=== PATIENT | female | born 1930 | race Caucasian/White ===

== ENCOUNTER 2016-09-10 12:09 | Day surgery (SDC) | payer MEDICARE, BC ==
[2016-09-10 13:16] VITALS: BP 164/83
[2016-09-10] MEDS ORDERED: TETRACAINE HCL 150 DROP BTL LEFTEYE ONE (13:29)
== END 2016-09-10 12:10 | disposition home or self-care (01) ==
LOC: AMB 12:09
PROVIDERS: ATTEND Ophthalmology
PROC: 08933ZZ Drainage of Left Anterior Chamber, Percutaneous Approach (ICD-10-PCS; principal; 2016-09-10 12:30)
DX: H40.1123 Primary open-angle glaucoma, left eye, severe stage (principal); I10 Essential (primary) hypertension; E78.00 Pure hypercholesterolemia, unspecified; E03.9 Hypothyroidism, unspecified; Z68.29 Body mass index [BMI] 29.0-29.9, adult

== ENCOUNTER 2020-07-05 23:29 | Inpatient (IN) ==
[2020-07-05] MEDS ORDERED: NORMAL SALINE 1,000 ML IV ONE (23:39)
[2020-07-05 23:48] LABS: Mean Corpuscular Hemoglobin 31.3 pg (27-31); Mean Corpuscular Hgb Conc 32.6 g/dl (32-36); Mean Platelet Volume 10.6 fl (8-12.5); Neutrophil # 7.1 K/mm3 (1.3-6.0); Neutrophil % 74.4 % (42-75.0); Platelet Count 209 K/mm3 (150-450); Red Blood Count 4.48 M/mm3 (4.2-5.4); Red Cell Distribution Width 12.2 % (11.5-14.0); White Blood Count 9.6 K/mm3 (4.0-10.5)
[2020-07-05] MEDS ORDERED: ONDANSETRON HCL/PF 2 MG/ML VIAL IV ONE (23:55)
[2020-07-05] MEDS ORDERED: ONDANSETRON HCL/PF 2 MG/ML VIAL ONE (23:56)
[2020-07-05] MEDS ORDERED: FAMOTIDINE 10 MG/ML VIAL IV ONE (23:56)
--- NOTE | 2020-07-05 23:59 | ERNOTE ---
Medical Problem HPI - Narrative Date of Service: 07/05/20 - General Time Seen by Provider: 07/05/20 23:31 Source: patient, family, EMS Exam Limitations: clinical condition - Immun/Allergies/Home Medications Allergies/Adverse Reactions: Allergies Penicillins Allergy (Unknown, Verified 09/04/16 09:10) Home Medications: HOME MEDICATIONS Aspirin [Aspirin EC] 81 mg PO DAILY 07/06/20 [Last Taken Unknown] Bimatoprost [Lumigan 0.01% Opth Solution] 2.5 ml OP DAILY 07/06/20 [Last Taken Unknown] Brimonidine Tartrate [Alphagan P 0.1% Ophthalmic Solution] 5 ml OP TID 07/06/20 [Last Taken Unknown] Brinzolamide [Azopt 1% Ophthalmic Suspension] 10 ml OP BID 07/06/20 [Last Taken Unknown] Cranberry 4,200 mg PO BID 07/06/20 [Last Taken Unknown] Garlic 1,000 mg PO DAILY 07/06/20 [Last Taken Unknown] Glucosamine HCl/MSM [Sm Glucosamine & MSM Tablet] 2 ea PO DAILY 07/06/20 [Last Taken Unknown] Hydrochlorothiazide [Hydrodiuril] 25 mg PO DAILY 07/06/20 [Last Taken Unknown] Levothyroxine Sodium [Synthroid] 50 mcg PO DAILY 07/06/20 [Last Taken Unknown] Lisinopril [Zestril] 10 mg PO DAILY 07/06/20 [Last Taken Unknown] [place]-3 Fatty Acids/Fish Oil [Fish Oil 1,000 mg Capsule] 1 ea PO DAILY 07/06/20 [Last Taken Unknown] Vitamin B12 1,000 mg PO DAILY 07/06/20 [Last Taken Unknown] Vitamin D3 2,000 units PO DAILY 07/06/20 [Last Taken Unknown] - History of Present History Narrative: Patient is an 89 yr old female being treated for back pain pending MRI presenting with N/V after Tramadol times one. Patientpresents per EMS from home. Family described patient as nauseated and lethargic lying on the floor at home. Timing: getting worse Severity: moderate Modifying Factors - (Improves): Present: rest Modifying Factors - (Worsens): Present: movement Review of Systems - Review of Systems Constitutional: Present: weakness EYE: Present: no symptoms reported ENT: Present: no symptoms reported Respiratory: Present: no symptoms reported Cardiology: Present: no symptoms reported Gastrointestinal/Abdominal: Present: nausea, vomiting Genitourinary: Present: no symptoms reported Musculoskeletal: Present: no symptoms reported Skin: Present: no symptoms reported Neurological: Present: no symptoms reported Hematologic/Lymphatic: Present: no symptoms reported Psych: Present: no symptoms reported Medical History (Last Reviewed 07/06/20 @ 01:34 by Marie Shaikh MD) Hx of cataract Hx of chronic arthritis Hypertension Hypothyroid Surgical History: Surgical History (Last Reviewed 07/06/20 @ 01:34 by Marie Shaikh MD) History of hip surgery Hx of cataract surgery Family History: Family History (Last Reviewed 07/06/20 @ 01:34 by Marie Shaikh MD) Other Family history non-contributory Physical Exam - Physical Exam General Appearance: Present: wd/wn, moderate distress, lethargic Head Exam: Present: normal inspection, no evidence of injury Eye Exam: Normal inspection: bilateral Ears, Nose, Throat: Present: normal ENT inspection Neck: Present: normal inspection, nontender Respiratory: Present: no respiratory distress, normal breath sounds, no accessory muscle use, chest nontender, lungs clear Cardiovascular/Chest: Present: normal peripheral pulses, bradycardia, systolic murmur Peripheral Pulses: N=norm/S=strong/W=weak/B=bound/A=absent: Radial (R): Normal, Radial (L): Normal, Dorsalis-pedis (R): Normal, Dorsalis-pedis (L): Normal Gastrointestinal/Abdominal: Present: normal bowel sounds, tenderness - midepigastric Extremity Exam: Present: normal inspection, non-tender, normal range of motion, no edema Progress - Results and Orders Patient's Lab Results:: I have reviewed the patient's lab results. - Vital Signs Patient's Vital Signs:: I have reviewed the patient's vital signs. - EKG EKG #1 EKG read: Interp. by me - EKG demonstrates sinus bradycardia with occasional PVCs and a rate of 58. No acute changes are noted. - Progress/Reassessment Progress:: Improved Plan - Plan Plan: Patient has history of scoliosis of the lower back. Patient was evaluated at [facility] and pending MRI in a.m. Patient was treated with tramadol for discomfort. Patient took 1 dose of tramadol and developed nausea vomiting. Patient's family described her as very lethargic. Patient presented to the emergency department bradycardic with near syncopal episode with drop in pulse ox requiring 1 to 2 L/min of nasal cannula. Patient gradually improved but with persistent nausea. Repeat blood pressure after 1 L of fluid noting BNP of 800 the blood pressure is 131/62 with heart rate of 62. Patient will be admitted and gradually hydrated and observed with symptomatic treatment for medication reaction. Case is discussed with and will admit for observation. Departure Clinical Impression: Medication reaction - Departure Disposition: Short Term Hospital Inpatient Condition: Stable Referrals: Dioni Smith MD [Primary Care Provider] -
[2020-07-06 00:02] LABS: Albumin * 3.7 gm/dl (3.4-5.0); Bilirubin, Total 0.7 mg/dL (0.0-1.1); Total Protein 7.3 gm/dL (6.2-8.2)
[2020-07-06 00:04] LABS: Anion Gap 15.7 mmol/L (6.8-13.8); BUN/Creatinine Ratio 19.6 (9.0-21.6); Ca. Corrected For Albumin 9.8 mg/dL (8.4-10.2); Calcium * 9.9 mg/dL (7.9-10.9); Carbon Dioxide 27.2 mmol/L (24-32.6); Potassium 3.9 mmol/L (3.4-4.6)
[2020-07-06] MEDS: NORMAL SALINE 1,000 ML IV ONE ×2 (00:37→01:12)
[2020-07-06] MEDS ORDERED: SUCRALFATE 1 G/10 ML UDC PO ONE (00:47)
[2020-07-06] MEDS ORDERED: ONDANSETRON HCL/PF 2 MG/ML VIAL IV ONE (01:04)
[2020-07-06] MEDS ORDERED: KETOROLAC TROMETHAMINE 30 MG/ML VIAL IV ONE (02:15)
[2020-07-06] MEDS ORDERED: cefTRIAXone SODIUM 1,000 MG/100 ML BAG IV ONE (03:00)
--- NOTE | 2020-07-06 08:25 | HP ---
Chief Complaint - Chief Complaint Date of Service: 07/06/20 Time of Service: 08:25 Chief Complaint: nausea/ vomiting/abdominal pain History of Present Illness: Marylu Murry is an 89 yr old white female with past medical history significant for hypertension, hypothyroidism, hyperlipidemia and low back pain who was admitted on 07/06/2020 for nausea and vomiting after taking tramadol. Marylu has been having constipation for the past several days. On Saturday she had back pain that also involve her right abdominal area. She was given oxycodone by her daughter on Saturday. She had another dose on Saturday. She saw orthopedics at [facility] who ordered for an MRI for her back and she was sent home with tramadol. She took one of them and she had abdominal pain severe and she went to be bathroom but could not have any bowel movement. She took stool laxatives and went back to her bed but the pain was worse associated with nausea and vomiting x3. She laid down on the floor with her pillow and called her daughter. She was then brought to our emergency room . She said she did not pass out at all. She denied fever or chills, dark or bright red blood stools. Her CBC and CMP were essentially within normal limits except for Cr/GFR.. Her CT scan of the abdomen though showed- IMPRESSION: TECHNICALLY LIMITED STUDY ON ACCOUNT OF NONCONTRAST TECHNIQUE AND CONSIDERABLE STREAK ARTIFACT FROM BILATERAL HIP PROSTHETIC HARDWARE. SUSPECTED INFECTIOUS OR INFLAMMATORY ENTEROCOLITIS, MOST PRONOUNCED IN THE TRANSVERSE COLON. MODERATE RETENTION OF FLUID AND STOOL IN THE SMALL AND LARGE BOWEL, POSSIBLY REFLECTING MILD ASSOCIATED ADYNAMIC ILEUS. NO APPRECIABLE EVIDENCE OF MECHANICAL OBSTRUCTION, PNEUMATOSIS OR FREE AIR. QUESTIONABLE STOOL BURDEN IN THE RECTAL VAULT RAISING QUESTION OF FECAL IMPACTION ALTHOUGH THIS IS LIKELY. MODERATELY DISTENDED GALLBLADDER WITH NO GALLSTONES. THE STUDY CONCURS WITH THE PRELIMINARY REPORT FROM [facility] AT 0253 HOURS ON JUNE 26, 2020. She started passing liquid stools in the emergency room. Her ultrasound of her gallbladder done while she was on the floor showed- IMPRESSION: 1. Distended gallbladder without cholelithiasis. No evidence of acute cholecystitis on this exam. Normal caliber bile ducts given patient's age. 2. Trace fluid adjacent to the liver. If there is persistent concern for acute cholecystitis or gallbladder dysfunction, a nuclear medicine hepatobiliary scan could be performed to further evaluate. Patient is currently awake alert oriented x3, feeling better but lubricating machine tender diffusely on palpation of her abdomen. ADDENDUM: 9:49 am - Nurse says she passed put large liquid stool, maroonish in color- positive for occult blood. Medical History (Last Reviewed 07/06/20 @ 05:12 by Brigette Kurtz RN) Hx of cataract Hx of chronic arthritis Hypertension Hypothyroid Prolapsed bladder Rectocele Surgical History: Surgical History (Last Reviewed 07/06/20 @ 05:12 by Brigette Kurtz RN) History of hip surgery daughter reports pt has had bilateral hip replacements Hx of cataract surgery Family History: Family History (Last Updated 07/06/20 @ 05:13 by Brigette Kurtz RN) Mother Family history non-contributory Other Heart disease Social History: (Last Updated 07/06/20 @ 02:25 by Emelia Arevalo RN) Tobacco: Smoking Status: Never smoker Alcohol: alcohol intake: never Substance Use: substance use type: does not use Review Of Systems (GEN) - Review of Systems Generalized/Overall Review: Present: Weakness. Absent: Chills, Fever EENTM: Absent: Blurred Vision Respiratory: Absent: Cough, Shortness of Breath, Orthopnea Cardiac: Absent: Chest Pain, Edema, Palpitations Abdominal: Present: Nausea, Vomiting, Abdominal Pain, Constipation, Diarrhea. Absent: Hematemesis, Bright blood from rectum Genitourinary: Absent: Urgency, Frequency Musculoskeletal: Present: Back Pain. Absent: Joint Pain Neurological: Absent: Headache Skin: Absent: Lesions, Rash Endocrine: Absent: Intolerance to Cold, Intolerance to Heat Misc: All systems neg except as marked Immunizations: IMMUNIZATION HX History of Influenza Vaccine More Information Required Hx Pneumococcal Vaccination More Information Required Allergies/Adverse Reactions: Allergies Allergy/AdvReac Type Severity Reaction Status Date / Time Penicillins Allergy Unknown Verified 09/04/16 09:10 tramadol AdvReac Severe Other Verified 07/06/20 03:29 Home Medications: HOME MEDICATIONS Aspirin [Aspirin EC] 81 mg PO DAILY 07/06/20 [Last Taken 07/05/20] B Complx/C/Folic/Zinc/Cup Bartholomew/E [Lrjpxbxbachq-Tdre-Kglgrq Tab] 1 ea PO DAILY 07/06/20 [Last Taken Unknown] Brimonidine Tartrate [Alphagan P 0.1% Ophthalmic Solution] 1 drop EACHEYE TID 07/06/20 [Last Taken Unknown] Cranberry 500 mg PO TID 07/06/20 [Last Taken Unknown] Dorzolamide HCl/Timolol Maleat [Dorzolamide-Timolol Eye Drops] 1 drp EACHEYE BID 07/06/20 [Last Taken Unknown] Garlic 500 mg PO DAILY 07/06/20 [Last Taken 07/05/20] Hydrochlorothiazide [Hydrodiuril] 25 mg PO DAILY 07/06/20 [Last Taken Unknown] Levothyroxine Sodium [Synthroid] 50 mcg PO DAILY 07/06/20 [Last Taken Unknown] Lisinopril [Zestril] 10 mg PO HS 07/06/20 [Last Taken Unknown] [place]-3 Fatty Acids/Fish Oil [Fish Oil 1,000 mg Capsule] 1 ea PO DAILY 07/06/20 [Last Taken 07/05/20] Vitamin D3 2,000 units PO DAILY 07/06/20 [Last Taken 07/05/20] Exam - Exam Vital Signs: Vital Signs - Last Taken Temp 36.3 C 07/06/20 06:00 Pulse 65 07/06/20 06:00 Resp 16 07/06/20 06:00 BP 119/55 07/06/20 06:00 Pulse Ox 96 07/06/20 06:00 Constitutional: Present: Alert, Oriented x3, Cooperative, Elderly ENT Exam: Present: hearing grossly normal Eye Exam: bilateral eye: normal inspection, PERRL, EOMI Neck: Present: supple. Absent: lymphadenopathy (R), lymphadenopathy (L) Respiratory: Present: decreased breath sounds, No rales, No wheezing Cardiovascular/Chest: Present: regular rate, rhythm, no JVD, no murmur Abdomen: Present: soft, no rebound tenderness, tender, hypoactive Extremity: Present: no calf tenderness. Absent: lower extremity edema Diagnostic Studies: Abnormal Lab Results 07/05/20 07/05/20 07/05/20 Range/Units 23:43 23:43 23:46 MCH 31.3 H (27-31) pg Immature Gran % (Auto) 0.60 H (0.001-0.429) % Immature Gran # (Auto) 0.06 H (0.000-0.0310) K/mm3 Lymphocytes % 19.4 L (20-51) % Neutrophils # 7.1 H (1.3-6.0) K/mm3 Chloride 94 L (97-106) mmol/L Anion Gap 15.7 H (6.8-13.8) mmol/L BUN 29 H (3-23) mg/dL Creatinine 1.48 H (0.4-1.4) mg/dL Est GFR (Non-Af Amer) 35 L (60-130) mL/min Random Glucose 172 H (70-110) mg/dL B-Natriuretic Peptide 816 H (5-550) pg/mL Laboratory Results WBC 9.6 K/mm3 (4.0-10.5) 07/05/20 23:43 RBC 4.48 M/mm3 (4.2-5.4) 07/05/20 23:43 Hgb 14.0 gm/dL (12.5-16.0) 07/05/20 23:43 Hct 43.0 % (37.0-47.0) 07/05/20 23:43 MCV 96.0 fl (78-100) 07/05/20 23:43 MCH 31.3 pg (27-31) H 07/05/20 23:43 MCHC 32.6 g/dl (32-36) 07/05/20 23:43 RDW 12.2 % (11.5-14.0) 07/05/20 23:43 Plt Count 209 K/mm3 (150-450) 07/05/20 23:43 MPV 10.6 fl (8-12.5) 07/05/20 23:43 Immature Gran % (Auto) 0.60 % (0.001-0.429) H 07/05/20 23:43 Immature Gran # (Auto) 0.06 K/mm3 (0.000-0.0310) H 07/05/20 23:43 Neutrophils % 74.4 % (42-75.0) 07/05/20 23:43 Lymphocytes % 19.4 % (20-51) L 07/05/20 23:43 Monocytes % 4.1 % (0.0-9) 07/05/20 23:43 Eosinophils % 1.2 % (0.0-3.0) 07/05/20 23:43 Basophils % 0.3 % (0.0-1.0) 07/05/20 23:43 Nucleated RBC % 0.0 k/mm3 (0-1) 07/05/20 23:43 Neutrophils # 7.1 K/mm3 (1.3-6.0) H 07/05/20 23:43 Lymphocytes # 1.85 k/mm3 (1.5-3.5) 07/05/20 23:43 Monocytes # 0.4 k/mm3 (0.0-1.0) 07/05/20 23:43 Eosinophils # 0.1 k/mm3 (0.0-0.7) 07/05/20 23:43 Absolute Basophils 0.0 k/mm3 (0.0-0.1) 07/05/20 23:43 Sodium 133 mmol/L (132-142) 07/05/20 23:43 Plasma Sodium 134 mmol/L (130-142) 07/05/20 23:43 Potassium 3.9 mmol/L (3.4-4.6) 07/05/20 23:43 Chloride 94 mmol/L (97-106) L 07/05/20 23:43 Carbon Dioxide 27.2 mmol/L (24-32.6) 07/05/20 23:43 Anion Gap 15.7 mmol/L (6.8-13.8) H 07/05/20 23:43 BUN 29 mg/dL (3-23) H 07/05/20 23:43 Creatinine 1.48 mg/dL (0.4-1.4) H 07/05/20 23:43 Est GFR (Non-Af Amer) 35 mL/min (60-130) L 07/05/20 23:43 BUN/Creatinine Ratio 19.6 (9.0-21.6) 07/05/20 23:43 Random Glucose 172 mg/dL (70-110) H 07/05/20 23:43 Calcium 9.9 mg/dL (7.9-10.9) 07/05/20 23:43 Calcium Adj for Albumin 9.8 mg/dL (8.4-10.2) 07/05/20 23:43 Total Bilirubin 0.7 mg/dL (0.0-1.1) 07/05/20 23:43 AST 42 U/L (0-48) 07/05/20 23:43 ALT 33 U/L (19-67) 05/18/21 23:43 Alkaline Phosphatase 60 U/L (50-170) 07/05/20 23:43 B-Natriuretic Peptide 816 pg/mL (5-550) H 07/05/20 23:46 Total Protein 7.3 gm/dL (6.2-8.2) 07/05/20 23:43 Albumin 3.7 gm/dl (3.4-5.0) 07/05/20 23:43 SARS-CoV-2 (PCR) Not detected (NotDetected) 07/06/20 01:37 Assessment/Plan - Narrative Narrative: Marylu Murry is an 89-year-old white female who was admitted for nausea, vomiting and abdominal pain. While this could be due to tramadol medication causing biliary spasm, her CT scan of her abdomen does show enterocolitis which could be infectious or inflammatory. Will send stool for culture, occult blood. Will also check IBD panel. Unlikely ischemic or malignancy. It was done though without contrast. Her white blood cell count and liver function tests were all within normal limits except for her Cr/GFR. Physically patient is lubricating machine tender all over with equivocal rebound (?). We will keep patient on clear liquids for bowel rest and start on IV antibiotics, IV protonix. We will get a surgical consult. Her ultrasound showed cholelithiasis with no evidence of acute cholecystitis. Her LFT are all WNL. ADDENDUM: 9:49-The nurse says she just passed a large bowel movement, maroonish, liquid. positive stool for occult blood. - Assessment/Plan (1) Enterocolitis Assessment: with ileus and GIB Problem: Acute (2) Medication reaction Problem: Suspected Qualifiers: Encounter type: initial encounter Qualified Code(s): T50.905A - Adverse effect of unspecified drugs, medicaments and biological substances, initial encounter (3) Cholelithiasis Problem: Acute Qualifiers: Cholecystitis presence: without cholecystitis (4) Hypertension Problem: Chronic Qualifiers: Hypertension type: essential hypertension Qualified Code(s): I10 - Essential (primary) hypertension (5) Hypothyroidism Problem: Chronic Qualifiers: Hypothyroidism type: acquired Qualified Code(s): E03.9 - Hypothyroidism, unspecified (6) CRF (chronic renal failure) Problem: Acute Qualifiers: Chronic kidney disease stage: stage 3 (moderate) Chronic kidney disease stage 3 subtype: stage 3b (GFR 30-44) Qualified Code(s): N18.32 - Chronic kidney disease, stage 3b
[2020-07-06] MEDS: metroNIDAZOLE/SODIUM CHLORIDE 500 MG/100 ML BAG IV SCH ×2 (09:33→16:08)
[2020-07-06] MEDS: NORMAL SALINE 1,000 ML IV PRN ×2 (09:35→20:08)
[2020-07-06] MEDS: CIPROFLOXACIN IN 5 % DEXTROSE 400 MG/200 ML BAG IV SCH ×2 (10:32→20:06)
[2020-07-06] MEDS: LEVOTHYROXINE SODIUM 50 MCG TABLET PO SCH (10:33)
[2020-07-06] MEDS: PANTOPRAZOLE SODIUM 40 MG in NORMAL SALINE 100 ML IV SCH (10:44)
[2020-07-06] MEDS: BRIMONIDINE TARTRATE 50 DROP BTL EACHEYE SCH ×2 (12:18→16:08)
[2020-07-06] MEDS: ACETAMINOPHEN 325 MG TABLET PO PRN ×2 (14:31→23:56)
[2020-07-06] MEDS: TIMOLOL MALEATE/DORZOLAM HCL 100 DROP BTL EACHEYE SCH (20:11)
[2020-07-06] MEDS: LISINOPRIL 10 MG TABLET PO SCH (21:52)
--- NOTE | 2020-07-06 23:11 | CONS ---
[facility] - General Date of Service: 07/06/20 Source: patient, family, RN/MD, RN notes reviewed Exam Limitations: other - Patient is not a precise historian - History of Present Illness Initial Comments: The patient has been having pain in her right side and back. She has apparently had back pain for a long time. She saw the spine surgeon in [place] who ordered an MRI for today. Apparently last night she took a tramadol and when she went into the bathroom collapsed on the floor. She was limp and then needed to call an ambulance to bring her to the hospital. She did not lose consciousness. Evaluation in the emergency room last night included a CAT scan of the abdomen and pelvis (no p.o. contrast). There were findings of a distended gallbladder and ultrasound was recommended. There was also soft tissue reaction around the left colon and inflammatory or enterocolitis was suggested. Today apparently she passed some maroon blood after a bowel movement. She has apparently had another bowel movement that had less blood in it. Her vital signs have remained stable. She has not been febrile. Her gallbladder ultrasound this morning showed no gallstones or evidence of acute inflammation. The patient has complained of some lower abdominal discomfort. I was able to interview the patient's daughter at length. She was brought to the hospital after becoming weak in the bathroom. She was supposed to have an MRI today but that has been rescheduled. The history of belly pain and her bowel movement history is somewhat uncertain. Apparently she had not had a bowel movement for several days prior to coming to the hospital (possibly not since before the weekend). She may have some problems with constipation. They are not sure if she takes medication for her bowels, her uses prune juice, there is some Citrucel in the house. They are not sure what pain medication she is taking--- she has some oxycodone from her hip surgery, and apparently also some tramadol. Dr. Farias is her primary care provider. Most of her previous studies have been done in [place]. She has had some abdominal surgery--at least a hysterectomy. The daughter is unsure when she had a colonoscopy but she probably had one in [place] a while ago. Severity: moderate Modifying Factors - (Worsens): Reports: movement Modifying Factors - (Improves): Reports: rest Associated Symptoms: other - No fever or chills. She is burping. She feels like she might have to have a bowel movement Allergies/Adverse Reactions: Allergies Penicillins Allergy (Unknown, Verified 09/04/16 09:10) tramadol Adverse Reaction (Severe, Verified 07/06/20 03:29) Other causes lethargy and vomiting Home Medications: Home Medications Medication Instructions Recorded Last Taken Aspirin [Aspirin EC] 81 mg PO DAILY 07/06/20 07/05/20 B Complx/C/Folic/Zinc/Cup Bartholomew/E 1 ea PO DAILY 07/06/20 Unknown [Yycfuwkzlzkk-Atjf-Ikuvyk Tab] Brimonidine Tartrate [Alphagan P 1 drop EACHEYE TID 07/06/20 Unknown 0.1% Ophthalmic Solution] Cranberry 500 mg PO TID 07/06/20 Unknown Dorzolamide HCl/Timolol Maleat 1 drp EACHEYE BID 07/06/20 Unknown [Dorzolamide-Timolol Eye Drops] Garlic 500 mg PO DAILY 07/06/20 07/05/20 Hydrochlorothiazide [Hydrodiuril] 25 mg PO DAILY 07/06/20 Unknown Latanoprostene Bunod [Vyzulta] 1 drp EACHEYE HS 07/06/20 Unknown Levothyroxine Sodium [Synthroid] 50 mcg PO DAILY 07/06/20 Unknown Lisinopril [Zestril] 10 mg PO HS 07/06/20 Unknown [place]-3 Fatty Acids/Fish Oil [Fish 1 ea PO DAILY 07/06/20 07/05/20 Oil 1,000 mg Capsule] Vitamin D3 2,000 units PO DAILY 07/06/20 07/05/20 Procedures Application of splint (09/14/03) Drainage of Left Anterior Chamber, Percutaneous Approach (09/10/16) Insertion of intraocular lens prosthesis at time of cataract extraction, one- stage (05/06/07) Other facilitation of intraocular circulation (09/13/14) Phacoemulsification and aspiration of cataract (05/06/07) Medications - Medications Current Medications: Current Medications Acetaminophen (Acetaminophen 325 Mg Tablet) 650 mg PO Q6H PRN PRN Reason: Pain/Fever Stop: 08/05/20 13:40 Last Admin: 07/06/20 14:31 Dose: 650 mg Documented by: Brimonidine Tartrate (Brimonidine Tartrate 50 Drop Btl) 1 drop EACHEYE TID NATALYA Stop: 08/05/20 13:01 Last Admin: 07/06/20 16:08 Dose: 1 drop Documented by: Dorzolamide/Timolol (Timolol Maleate/Dorzolam Hcl 100 Drop Btl) 1 drop EACHEYE BID [facility] Stop: 08/05/20 21:01 Last Admin: 07/06/20 20:11 Dose: 1 drop Documented by: Sodium Chloride (Sodium Chloride 0.9%) 1,000 mls @ 125 mls/hr IV .Q8H PRN PRN Reason: HYDRATION Stop: 08/05/20 01:44 Last Admin: 07/06/20 20:08 Dose: 125 mls/hr Documented by: Ciprofloxacin/Dextrose (Cipro) 400 mg in 200 mls @ 200 mls/hr IV Q12H [facility]; Protocol Stop: 08/05/20 09:01 Last Infusion: 07/06/20 21:44 Dose: Infused Documented by: Metronidazole (Flagyl) 500 mg in 100 mls @ 100 mls/hr IV Q8H [facility]; Protocol Stop: 08/05/20 09:01 Last Infusion: 07/06/20 17:08 Dose: Infused Documented by: Pantoprazole Sodium 40 mg/ (Sodium Chloride) 100 mls @ 400 mls/hr IV Q24H [facility] Stop: 08/05/20 10:01 Last Infusion: 07/06/20 10:59 Dose: Infused Documented by: Levothyroxine Sodium (Levothyroxine Sodium 50 Mcg Tablet) 50 mcg PO DAILY@0700 [facility] Stop: 08/05/20 09:46 Last Admin: 07/06/20 10:33 Dose: 50 mcg Documented by: Lisinopril (Lisinopril 10 Mg Tablet) 10 mg PO [facility] Stop: 08/05/20 21:01 Last Admin: 07/06/20 21:52 Dose: 10 mg Documented by: Latanoprostene Bunod ([Vyzulta]) 1 drp EACHEYE [facility] Stop: 08/05/20 21:01 Last Admin: 07/06/20 20:00 Dose: Not Given Documented by: Review of Systems - Review of Systems Narrative: She is sleeping when I entered the room but awakens easily. She moves easily in bed. She does state that her lower abdomen is uncomfortable. Generalized/Overall Review: Absent: Chills, Fever EENTM: Present: No Symptoms Reported Respiratory: Absent: Cough, Shortness of Breath Cardiac: Absent: Chest Pain Abdominal: Present: Other - She states she feels a little distended. She is tender in the lower abdomen. It hurts more when she moves or coughs Genitourinary: Present: No Symptoms Reported Musculoskeletal: Present: Back Pain Neurological: Present: No Symptoms Reported Skin: Present: No Symptoms Reported Endocrine: Present: No Symptoms Reported Physical Examination - Exam Vital Signs: Vital Signs - Last Taken Temp 37.1 C 07/06/20 18:20 Pulse 74 07/06/20 21:52 Resp 18 07/06/20 18:20 BP 141/65 07/06/20 21:52 Pulse Ox 95 07/06/20 14:21 O2 Oxygen Delivery Method Room Air Constitutional: Present: Alert, Oriented x3, Cooperative, Well nourished, No distress ENT Exam: Present: normal ENT inspection Neck: Present: normal inspection Respiratory: Present: no respiratory distress Cardiovascular/Chest: Present: regular rate, rhythm Abdomen: Present: other - Her abdomen is distended and tympanic but soft. She complains of discomfort diffusely on palpation throughout the lower abdomen but does not guard. 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 nml as tested, no motor/sensory deficits, oriented x 3 Appearance: Present: appropriate appearance, other - She is not a precise historian but answers questions appropriately Eye contact: Present: cooperative, good eye contact, normal speech Thoughts: Present: normal thought pattern - Results and Findings: Lab/Microbiology results last 24 hrs: Abnormal/Pending Laboratory Last 24 HRS 07/06/20 07/06/20 07/05/20 09:39 08:55 23:46 MCH Immature Gran % (Auto) Immature Gran # (Auto) Lymphocytes % Neutrophils # Chloride Anion Gap BUN Creatinine Est GFR (Non-Af Amer) Random Glucose C-Reactive Prot, Quant 2.8 H B-Natriuretic Peptide 816 H Stool Occult Blood Positive H 07/05/20 07/05/20 23:43 23:43 MCH 31.3 H Immature Gran % (Auto) 0.60 H Immature Gran # (Auto) 0.06 H Lymphocytes % 19.4 L Neutrophils # 7.1 H Chloride 94 L Anion Gap 15.7 H BUN 29 H Creatinine 1.48 H Est GFR (Non-Af Amer) 35 L Random Glucose 172 H C-Reactive Prot, Quant B-Natriuretic Peptide Stool Occult Blood - Assessments/Findings (1) Abnormal computed tomography of abdomen and pelvis Diagnosis(s): The etiology of the CT scan findings referable to the colon is unclear. Her white blood cell count is normal, she is not febrile, her ESR is only 5 CRP is 2.8. Stool for C. difficile is negative. Stool culture is pending. Inflammatory bowel disease at her age would be unusual. Ischemic disease of the colon would usually produce a higher white blood cell count. She may have chronic constipation and a chronically dilated colon. She has been started on antibiotics empirically. Would recommend that she be kept on clear liquids tonight. Repeat CBC is ordered. An inflammatory disease panel has been ordered and a stool culture has been submitted. I had an extensive conversation with the patient's daughter and explained that currently the findings cannot be explained, however she is stable and supportive care with repeated exams would be appropriate. I will continue to follow the patient Problem: Acute (2) GI bleeding Diagnosis(s): The etiology of the bleeding is unclear. Whether it is due to having passed a hard bowel movement or somehow related to the CT scan findings is unclear at this time. She is hemodynamically stable. Meaningful examination of the colon would require a prep. Problem: Acute
[2020-07-07] MEDS: NORMAL SALINE 1,000 ML IV PRN ×3 (05:25→22:43)
[2020-07-07 07:15] LABS: Hematocrit 39.9 % (37.0-47.0); Hemoglobin 12.8 gm/dL (12.5-16.0); Mean Cell Volume 97.8 fl (78-100); Mean Corpuscular Hemoglobin 31.4 pg (27-31); Mean Corpuscular Hgb Conc 32.1 g/dl (32-36); Mean Platelet Volume 10.7 fl (8-12.5); Neutrophil # 7.7 K/mm3 (1.3-6.0); Platelet Count 168 K/mm3 (150-450); Red Blood Count 4.08 M/mm3 (4.2-5.4); Red Cell Distribution Width 12.9 % (11.5-14.0); White Blood Count 9.1 K/mm3 (4.0-10.5)
[2020-07-07 07:27] LABS: Albumin * 2.7 gm/dl (3.4-5.0); Anion Gap 11.4 mmol/L (6.8-13.8); BUN/Creatinine Ratio 25.7 (9.0-21.6); Bilirubin, Total 0.4 mg/dL (0.0-1.1); Ca. Corrected For Albumin 8.5 mg/dL (8.4-10.2); Calcium * 7.8 mg/dL (7.9-10.9); Carbon Dioxide 25.6 mmol/L (24-32.6); Total Protein 5.7 gm/dL (6.2-8.2)
[2020-07-07] MEDS: LEVOTHYROXINE SODIUM 50 MCG TABLET PO SCH (07:41)
[2020-07-07] MEDS: ONDANSETRON HCL/PF 2 MG/ML VIAL IV PRN ×2 (07:41→15:13)
[2020-07-07] MEDS: ACETAMINOPHEN 325 MG TABLET PO PRN (08:19)
[2020-07-07] MEDS: metroNIDAZOLE/SODIUM CHLORIDE 500 MG/100 ML BAG IV SCH ×3 (08:20→17:36)
[2020-07-07] MEDS: CIPROFLOXACIN IN 5 % DEXTROSE 400 MG/200 ML BAG IV SCH ×2 (08:20→20:17)
[2020-07-07] MEDS: BRIMONIDINE TARTRATE 50 DROP BTL EACHEYE SCH ×3 (08:21→17:38)
[2020-07-07] MEDS: TIMOLOL MALEATE/DORZOLAM HCL 100 DROP BTL EACHEYE SCH ×2 (08:21→20:13)
[2020-07-07] MEDS ORDERED: SODIUM, POTASSIUM,MAG SULFATES 1 KIT KIT PO ONE (08:32)
--- NOTE | 2020-07-07 08:47 | PN ---
Subjective - Date and Time Seen Date: 07/07/20 Time: 08:38 Subjective Narrative: Patient had BM that was bloody. She says she is better but still has some abdominal pain with deep breathing/coughing. Objective - Review of Systems Generalized/Overall Review: Reports: Weakness. Denies: Chills, Fever EENTM: Denies: Blurred Vision Respiratory: Denies: Cough, Shortness of Breath, Orthopnea Cardiac: Denies: Chest Pain, Edema, Palpitations Abdominal: Reports: Nausea - resolved, Vomiting - resolved, Abdominal Pain - improved Genitourinary Symptoms: Denies: Urgency, Frequency Musculoskeletal Complaints: Reports: Back Pain. Denies: Joint Pain Neurological: Denies: Headache Misc: All systems neg except as marked - Vitals Vitals: Last Vital Signs Temp 37.3 C 07/07/20 06:59 Pulse 75 07/07/20 06:59 Resp 26 H 07/07/20 06:59 BP 147/74 07/07/20 06:59 Pulse Ox 93 07/07/20 06:59 - Abnormal Lab Findings Abnormal Lab Findings: Abnormal Lab Results 07/06/20 07/06/20 07/07/20 Range/Units 08:55 09:39 07:02 RBC 4.08 L (4.2-5.4) M/mm3 MCH 31.4 H (27-31) pg Neutrophils % 84.0 H (42-75.0) % Lymphocytes % 10.1 L (20-51) % Neutrophils # 7.7 H (1.3-6.0) K/mm3 Lymphocytes # 0.92 L (1.5-3.5) k/mm3 BUN (3-23) mg/dL Est GFR (Non-Af Amer) (60-130) mL/min BUN/Creatinine Ratio (9.0-21.6) Calcium (7.9-10.9) mg/dL Alkaline Phosphatase (50-170) U/L C-Reactive Prot, Quant 2.8 H (0.0-0.9) mg/dL Total Protein (6.2-8.2) gm/dL Albumin (3.4-5.0) gm/dl Stool Occult Blood Positive H 07/07/20 Range/Units 07:02 RBC (4.2-5.4) M/mm3 MCH (27-31) pg Neutrophils % (42-75.0) % Lymphocytes % (20-51) % Neutrophils # (1.3-6.0) K/mm3 Lymphocytes # (1.5-3.5) k/mm3 BUN 29 H (3-23) mg/dL Est GFR (Non-Af Amer) 48 L D (60-130) mL/min BUN/Creatinine Ratio 25.7 H (9.0-21.6) Calcium 7.8 L (7.9-10.9) mg/dL Alkaline Phosphatase 42 L (50-170) U/L C-Reactive Prot, Quant (0.0-0.9) mg/dL Total Protein 5.7 L (6.2-8.2) gm/dL Albumin 2.7 L (3.4-5.0) gm/dl Stool Occult Blood - Exam Constitutional: Present: Alert, Oriented x3, Cooperative, Elderly ENT Exam: Present: hearing grossly normal Neck: Present: supple. Absent: lymphadenopathy (R), lymphadenopathy (L) Respiratory: Present: normal breath sounds, No rales, No wheezing Cardiovascular/Chest: Present: regular rate, rhythm, no JVD, no murmur Abdomen: Present: soft, tender, distended, hypoactive. Absent: guarding, rigidity Extremity: Present: no calf tenderness. Absent: lower extremity edema Assessment/Plan Plan Narrative: Marylu was admitted for possible enterocolitis infectious versus inflammatory with GI bleed. She is feeling better this morning although still complains of abdominal pain which gets aggravated with deep breathing. She has had another liquid stool mixed with blood. . She is for probable endoscopy today by Dr. Davis. In the meantime we will continue with her IV antibiotics awaiting for stool culture and IBD panel results. - Problems/Diagnosis (1) Enterocolitis Problem: Acute (2) Medication reaction Problem: Suspected Qualifiers: Encounter type: initial encounter Qualified Code(s): T50.905A - Adverse effect of unspecified drugs, medicaments and biological substances, initial encounter (3) Cholelithiasis Problem: Acute Qualifiers: Cholecystitis presence: without cholecystitis (4) Hypertension Problem: Chronic Qualifiers: Hypertension type: essential hypertension Qualified Code(s): I10 - Essential (primary) hypertension (5) Hypothyroidism Problem: Chronic Qualifiers: Hypothyroidism type: acquired Qualified Code(s): E03.9 - Hypothyroidism, unspecified (6) CRF (chronic renal failure) Problem: Acute Qualifiers: Chronic kidney disease stage: stage 3 (moderate) Chronic kidney disease stage 3 subtype: stage 3b (GFR 30-44) Qualified Code(s): N18.32 - Chronic kidney disease, stage 3b
[2020-07-07] MEDS: PANTOPRAZOLE SODIUM 40 MG in NORMAL SALINE 100 ML IV SCH (09:26)
--- NOTE | 2020-07-07 14:29 | ANES ---
Anesthesia Pre Procedure Eval Vitals/Labs: Last Vital Signs Temp 36.7 C 07/07/20 13:49 Pulse 72 07/07/20 13:49 Resp 12 07/07/20 13:49 BP 139/67 07/07/20 13:49 Pulse Ox 92 L 07/07/20 13:49 HOME MEDICATIONS Aspirin [Aspirin EC] 81 mg PO DAILY 07/06/20 [Last Taken 07/05/20] B Complx/C/Folic/Zinc/Cup Bartholomew/E [Vgdagifudsab-Iuxl-Qzumdo Tab] 1 ea PO DAILY 07/06/20 [Last Taken Unknown] Brimonidine Tartrate [Alphagan P 0.1% Ophthalmic Solution] 1 drop EACHEYE TID 07/06/20 [Last Taken Unknown] Cranberry 500 mg PO TID 07/06/20 [Last Taken Unknown] Dorzolamide HCl/Timolol Maleat [Dorzolamide-Timolol Eye Drops] 1 drp EACHEYE BID 07/06/20 [Last Taken Unknown] Garlic 500 mg PO DAILY 07/06/20 [Last Taken 07/05/20] Hydrochlorothiazide [Hydrodiuril] 25 mg PO DAILY 07/06/20 [Last Taken Unknown] Latanoprostene Bunod [Vyzulta] 1 drp EACHEYE HS 07/06/20 [Last Taken Unknown] Levothyroxine Sodium [Synthroid] 50 mcg PO DAILY 07/06/20 [Last Taken Unknown] Lisinopril [Zestril] 10 mg PO HS 07/06/20 [Last Taken Unknown] [place]-3 Fatty Acids/Fish Oil [Fish Oil 1,000 mg Capsule] 1 ea PO DAILY 07/06/20 [Last Taken 07/05/20] Vitamin D3 2,000 units PO DAILY 07/06/20 [Last Taken 07/05/20] Allergies/Adverse Reactions: Allergies Allergy/AdvReac Type Severity Reaction Status Date / Time Penicillins Allergy Unknown Verified 09/04/16 09:10 tramadol AdvReac Severe Other Verified 07/06/20 03:29 - Planned Procedure Planned Procedure: Enterocolitis, GI bleed Medication List Reviewed:: Yes Allergies Verified: Yes Medical History (Last Reviewed 07/07/20 @ 14:16 by Ajay Watson CRNA) 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 Hx of cataract Hx of chronic arthritis Hypertension Hypothyroid Prolapsed bladder Pulmonary embolism Onset Date: ~1965 Rectocele Surgical History (Last Reviewed 07/07/20 @ 14:28 by Ajay Watson CRNA) H/O colonoscopy 1999, 2010 H/O lumpectomy Onset Date: ~2012 H/O varicose vein stripping Onset Date: ~1966 History of cataract surgery Onset Date: ~2007 right & left History of hip surgery bilateral hip replacements left 2007 right 2012 History of hysterectomy Onset Date: ~1986 History of surgical procedure on eye proper using laser Onset Date: ~1995 Hx of cataract surgery Family History (Last Reviewed 07/07/20 @ 14:28 by Ajay Watson CRNA) Mother Family history non-contributory Other Heart disease - Family Anesthesia History Family History:: no untoward family reactions to anesthesia, no familial bleeding tendencies, no family history of clotting disorders, no family history of premature - Airway/Neck/Teeth Denture Type: Full upper, Partial upper Neck Exam: full range of motion Mallampatti Score: 2 Thyromental (T-M) distance: > 6 cm Mandibulo Hyoid distance: > 3 cm - Respiratory Respiratory Physical: rhonchi Smoking Status: Never smoker Sleep Apnea currently treated: No Sleep Apnea by current assessment: No - Cardiovascular Cardiac History: hypertension, hyperlipidemia Tolerate Activity: Poor Heart Sounds: S1 & S2, Regular - Gastrointestinal NPO since: prep this am, did not finish water. - Anesthesia Assessment and Plan ASA Class: PS, III Anesthesia Type Plan: MAC
[2020-07-07] MEDS ORDERED: ONDANSETRON HCL/PF 2 MG/ML VIAL ONE (14:31)
[2020-07-07] MEDS ORDERED: PROPOFOL VIAL IV ONE (14:31)
[2020-07-07] MEDS ORDERED: LIDOCAINE HCL 20 ML VIAL ONE (14:31)
--- NOTE | 2020-07-07 17:46 | ANES ---
Post Anesthesia Discharge - Transfer of Care Transfer of Care handoff given to nurse: Yes - Discharge to ASU Discharge to ASU-no complications/pt stable: Yes - In room comfortable.
--- NOTE | 2020-07-07 18:35 | OR ---
Operative Report - Dictated Report Narrative: OPERATIVE REPORT DATE OF OPERATION: 07/07/2020 PREOPERATIVE DIAGNOSIS: GI bleeding POSTOPERATIVE DIAGNOSIS: Colitis starting at 30 cm and extending proximally (pathology pending). Diverticulosis. Single colon polyp at 20 cm (left in place) OPERATION: Colonoscopy with biopsy at 30 cm SURGEON: Maninder Davsi MD ANESTHESIA: TEE Watson CRNA INDICATIONS FOR PROCEDURE: The patient is a 69-year-old female who was admitted after an episode in the bathroom where she laid on the floor and was brought to the hospital by ambulance. She complained of abdominal discomfort and a CT scan of the abdomen pelvis was obtained. This revealed possible enterocolitis. She has had bright red blood per rectum which has tailed off during her prep for colonoscopy. FINDINGS: Normal-appearing rectum. Sigmoid diverticulosis. Abrupt change in mucosa at 30 cm with colitis extending proximal from this point. Biopsy taken. Single small polyp at approximately 20 cm NARRATIVE OF PROCEDURE: The patient was identified in the holding area, and prior to the administration of anesthetic, a multidisciplinary timeout was observed. With the patient in the left lateral position and after the administration of intravenous sedation, the perineum was inspected. There was no evidence of pilonidal disease or skin breakdown. The external appearance of the anus was normal. Sphincter tone was good. The flexible fiberoptic colonoscope was inserted into the rectum which was insufflated with air. The rectal mucosa and submucosal vascular pattern appeared normal, the prep was seen to be complete enough for diagnostic purposes. There was no blood immediately visible. The scope was advanced through the sigmoid colon, which contained numerous diverticular openings. There was no diverticulitis. There were several fecaliths which had apparently been flushed from diverticula by the prep. At 20 cm there was a 3-4 mm polyp which was not addressed so as to avoid over insufflation. The scope was advanced to approximately 30 cm. At this point there was a very rdz line of demarcation with edema and then exudative dusky colon mucosa extending proximally as far as could be seen. The scope was used to suction as much air from the proximal colon as could be managed. The scope was then withdrawn to the line of demarcation. 2 biopsies were obtained. The biopsy sites appeared hemostatic. The scope was gradually withdrawn to the level of the rectum. As much insufflated air as possible was removed. The scope was withdrawn from the patient and the procedure terminated. The patient tolerated the anesthetic and procedure well without complication and was transferred back to her room awake and in stable condition. I discussed the findings with the patient and at length with the patient's daughter. Photographs, pamphlets, and diagrams were used to explain the findings and given to them. I discussed the case with Dr. Simmons. Recommendation at this time is for continued antibiotics. The patient may be given clear liquids with IV hydration and will need to be followed carefully clinically. Review pathology when available Viewed and electronically signed
--- NOTE | 2020-07-07 19:47 | ANES ---
Post Anesthesia Assessment - Vital Signs Vitals: Last Vital Signs Temp 36.5 C 07/07/20 17:34 Pulse 81 07/07/20 18:26 Resp 16 07/07/20 18:26 BP 138/71 07/07/20 18:26 Pulse Ox 94 07/07/20 18:26 Airway Patency: Normal - Mental Status Level Of Consciousness: Awake, Alert, Appropriate - Pain Level Pain Score: 0 - N/V Assessment Nausea/Vomiting Presence: None Dehydration:: No
[2020-07-07] MEDS: LISINOPRIL 10 MG TABLET PO SCH (20:18)
[2020-07-08] MEDS: metroNIDAZOLE/SODIUM CHLORIDE 500 MG/100 ML BAG IV SCH ×3 (01:10→16:58)
[2020-07-08 03:44] LABS: Urine Bilirubin Negative (NEGATIVE); Urine Ketone 15 mg/dL (NEGATIVE); Urine Protein 30 mg/dL (NEGATIVE); Urine Specific Gravity >=1.030 SP.GR. (1.005-1.010); Urine Urobilinogen Normal (NORMAL); Urine pH 5.5 pH (5.0-7.0)
[2020-07-08 04:23] LABS: Urine Appearance Clear (CLEAR); Urine Blood 5 /ul (NEGATIVE); Urine Color Amber; Urine Nitrite Positive (NEGATIVE)
[2020-07-08 04:24] LABS: Urine Bacteria TRACE; Urine RBC 0-5 /hpf (0-5); Urine WBC 0-5 /hpf (0-5)
[2020-07-08] MEDS: ACETAMINOPHEN 325 MG TABLET PO PRN ×2 (05:48→21:44)
[2020-07-08 06:47] LABS: Prothrombin Time (Patient) 10.9 Seconds (9.1-10.7)
[2020-07-08 06:49] LABS: Hematocrit 33.6 % (37.0-47.0); Hemoglobin 10.9 gm/dL (12.5-16.0); Mean Cell Volume 96.6 fl (78-100); Mean Corpuscular Hemoglobin 31.3 pg (27-31); Mean Corpuscular Hgb Conc 32.4 g/dl (32-36); Mean Platelet Volume 10.6 fl (8-12.5); Neutrophil # 5.1 K/mm3 (1.3-6.0); Neutrophil % 80.8 % (42-75.0); Platelet Count 153 K/mm3 (150-450); Red Blood Count 3.48 M/mm3 (4.2-5.4); Red Cell Distribution Width 12.9 % (11.5-14.0); White Blood Count 6.3 K/mm3 (4.0-10.5)
[2020-07-08 06:51] LABS: INR 1.05 INR (0.92-1.08)
[2020-07-08 07:06] LABS: Anion Gap 13.8 mmol/L (6.8-13.8); Calcium * 7.9 mg/dL (7.9-10.9); Carbon Dioxide 24.1 mmol/L (24-32.6); Estimated Creat Clear 46.3; Potassium 2.9 mmol/L (3.4-4.6)
[2020-07-08 07:25] LABS: CRP 23.5 mg/dL (0.0-0.9)
--- NOTE | 2020-07-08 08:19 | PN ---
Subjective - Date and Time Seen Date: 07/08/20 Time: 08:18 Subjective Narrative: Marylu is feeling much better except she says she feels gas in her abdomen. She is afebrile. T-max of 37.3. She is post colonoscopy yesterday evening. White blood cell count is still normal. Hemoglobin down to 10.3. Objective - Review of Systems Generalized/Overall Review: Reports: Weakness. Denies: Chills, Fever EENTM: Denies: Blurred Vision Respiratory: Denies: Cough, Shortness of Breath, Orthopnea Cardiac: Denies: Chest Pain, Edema, Palpitations Abdominal: Denies: Nausea, Vomiting, Hematemesis Genitourinary Symptoms: Denies: Urgency, Frequency Musculoskeletal Complaints: Reports: Back Pain. Denies: Joint Pain Neurological: Denies: Headache Skin: Denies: Lesions, Rash Misc: All systems neg except as marked - Vitals Vitals: Last Vital Signs Temp 36.7 C 07/08/20 07:04 Pulse 80 07/08/20 07:04 Resp 16 07/08/20 07:04 BP 145/75 07/08/20 07:04 Pulse Ox 92 L 07/08/20 07:04 - Abnormal Lab Findings Abnormal Lab Findings: Abnormal Lab Results 07/08/20 07/08/20 07/08/20 Range/Units 03:13 06:30 06:30 RBC 3.48 L (4.2-5.4) M/mm3 Hgb 10.9 L (12.5-16.0) gm/dL Hct 33.6 L (37.0-47.0) % MCH 31.3 H (27-31) pg Neutrophils % 80.8 H (42-75.0) % Lymphocytes % 9.8 L (20-51) % Lymphocytes # 0.62 L (1.5-3.5) k/mm3 ESR 38 H (0-15) mm/hr PT (9.1-10.7) Seconds Potassium (3.4-4.6) mmol/L BUN/Creatinine Ratio (9.0-21.6) C-Reactive Prot, Quant (0.0-0.9) mg/dL Urine Protein 30 H (NEGATIVE) mg/dL Urine Blood 5 H (NEGATIVE) /ul Urine Nitrate Positive H (NEGATIVE) Ur Epithelial Cells 5-10 H (0-5) /hpf 07/08/20 07/08/20 Range/Units 06:30 06:38 RBC (4.2-5.4) M/mm3 Hgb (12.5-16.0) gm/dL Hct (37.0-47.0) % MCH (27-31) pg Neutrophils % (42-75.0) % Lymphocytes % (20-51) % Lymphocytes # (1.5-3.5) k/mm3 ESR (0-15) mm/hr PT 10.9 H (9.1-10.7) Seconds Potassium 2.9 L D (3.4-4.6) mmol/L BUN/Creatinine Ratio 23.0 H (9.0-21.6) C-Reactive Prot, Quant 23.5 H (0.0-0.9) mg/dL Urine Protein (NEGATIVE) mg/dL Urine Blood (NEGATIVE) /ul Urine Nitrate (NEGATIVE) Ur Epithelial Cells (0-5) /hpf - Exam Constitutional: Present: Alert, Oriented x3, Cooperative, Elderly ENT Exam: Present: hearing grossly normal Neck: Present: supple. Absent: lymphadenopathy (R), lymphadenopathy (L) Respiratory: Present: normal breath sounds, No rales, No wheezing Cardiovascular/Chest: Present: regular rate, rhythm, no JVD, no murmur Abdomen: Present: soft, tender - Slight tenderness significantly improved, distended - Tympanit ~mammogram patient isic, hypoactive Extremity: Present: no calf tenderness, other - SCD on Assessment/Plan Plan Narrative: Marylu was admitted for nausea, vomiting, and abdominal pain after she took Tramadol for her LBP. Her CT scan showed enterocolitis with cholelithiasis. Admitting impression was enterocolitis infectious versus inflammatory. Culture and C. difficile were negative. IBD panel was sent out. She was started on IV Cipro/Flagyl and kept on clear liquids. Ultrasound showed no acute cholecystitis. She had liquid stools with maroonish blood on the floor due to LGIB. Dr. Davis did a colonoscopy and feels it is ischemic colitis. The patient has no history of history of atrial fibrillation or history of pe ripheral arterial disease, or myocardial infarctions/CVA/WILTON/CHF in the past. This is looking more like acute colonic ischemia and less likely acute mesenteric ischemia . She also denies history of intestinal angina with meals therefore unlikely chronic intestinal ischemia. Her PT is 10.9 slightly above normal of 10.7/INR was normal. We will defer from doing a CT angiogram for now as it does not look like she has embolic or thrombotic mesenteric ischemia from her clinical history. This is more pointing to colonic ischemia, nonocclusive. It is likely induced by by oxycodne and tramadol causing more constipation therefore increasing her intestinal luminal pressure and reducing her blood flow. Clinically she looks like she is getting betterless abdominal tenderness, no abdominal pain when taking a deep breath, she continues to be afebrile, her white blood cell count continues to be normal. Her lactic acid, CK and lactic dehydrogenase, bicarb, WBC are all within normal limits. It does not look like her ischemic bowel is progressing to necrosis/gangrene which will need an exploratory laparotomy. Her ESR and CRP are elevated but she just also had an endoscopic procedure last night. We will continue with clear liquids and IV antibiotics. Her belly gas is likely due to her recent procedure and she does not want NGT at this time. I told the nurse to keep her O2 saturations equal to above 94% and I might consider BT (she drop from 14 to 10.9) if it drops below 10, all to avoid making the area more ischemic and progressing to gangrene. We will also replenish her K IV as we do not want electrolyte disturbance causing intestinal peristaltic abnormality causing increased O2 requirement or cardiac arrythmia causing hypotension and decreasing intestinal flow. Her telemetry shows NSR. Will sign out to knitting demonstrator for this weekend. Dr. Davis is following patient too. - Problems/Diagnosis (1) GI bleeding Problem: Acute Qualifiers: GI bleed type/associated pathology: unspecified gastrointestinal hemorrhage type Qualified Code(s): K92.2 - Gastrointestinal hemorrhage, unspecified Narrative: due to ischemic colitis. (2) Enterocolitis Problem: Acute Narrative: acute colonic ischemia (3) Medication reaction Problem: Suspected Qualifiers: Encounter type: initial encounter Qualified Code(s): T50.905A - Adverse effect of unspecified drugs, medicaments and biological substances, initial encounter (4) Cholelithiasis Problem: Acute Qualifiers: Cholelithiasis location: gallbladder Cholecystitis presence: without cholecystitis Biliary obstruction: without biliary obstruction Qualified Code(s): K80.20 - Calculus of gallbladder without cholecystitis without obstruction (5) Hypertension Problem: Chronic Qualifiers: Hypertension type: essential hypertension Qualified Code(s): I10 - Essential (primary) hypertension (6) Hypothyroidism Problem: Chronic Qualifiers: Hypothyroidism type: acquired Qualified Code(s): E03.9 - Hypothyroidism, unspecified (7) CRF (chronic renal failure) Problem: Acute Qualifiers: Chronic kidney disease stage: stage 3 (moderate) Chronic kidney disease stage 3 subtype: stage 3b (GFR 30-44) Qualified Code(s): N18.32 - Chronic kidney disease, stage 3b (8) Constipation Problem: Resolved
[2020-07-08] MEDS: CIPROFLOXACIN IN 5 % DEXTROSE 400 MG/200 ML BAG IV SCH ×2 (08:48→20:27)
[2020-07-08] MEDS: LEVOTHYROXINE SODIUM 50 MCG TABLET PO SCH (08:52)
[2020-07-08] MEDS: BRIMONIDINE TARTRATE 50 DROP BTL EACHEYE SCH ×3 (08:53→17:09)
[2020-07-08] MEDS: TIMOLOL MALEATE/DORZOLAM HCL 100 DROP BTL EACHEYE SCH ×2 (08:53→20:28)
[2020-07-08] MEDS: POTASSIUM CHLORIDE 40 MEQ in NORMAL SALINE 1,000 ML IV SCH ×2 (09:25→21:47)
[2020-07-08] MEDS: POTASSIUM CHLORIDE IN WATER 100 ML IV SCH ×3 (11:37→13:39)
[2020-07-08 14:11] LABS: P-ANCA Titer DNR titer (<1:20)
[2020-07-08] MEDS: PANTOPRAZOLE SODIUM 40 MG in NORMAL SALINE 100 ML IV SCH (14:52)
[2020-07-08] MEDS: NORMAL SALINE 1,000 ML IV PRN (19:46)
[2020-07-08] MEDS: LISINOPRIL 10 MG TABLET PO SCH (20:28)
[2020-07-09] MEDS: metroNIDAZOLE/SODIUM CHLORIDE 500 MG/100 ML BAG IV SCH ×3 (00:17→16:49)
[2020-07-09] MEDS: LEVOTHYROXINE SODIUM 50 MCG TABLET PO SCH (06:53)
[2020-07-09 07:41] LABS: Hematocrit 36.1 % (37.0-47.0); Hemoglobin 11.1 gm/dL (12.5-16.0); Mean Cell Volume 101.4 fl (78-100); Mean Corpuscular Hemoglobin 31.2 pg (27-31); Mean Corpuscular Hgb Conc 30.7 g/dl (32-36); Mean Platelet Volume 10.6 fl (8-12.5); Platelet Count 149 K/mm3 (150-450); Red Blood Count 3.56 M/mm3 (4.2-5.4); Red Cell Distribution Width 12.9 % (11.5-14.0); White Blood Count 5.6 K/mm3 (4.0-10.5)
[2020-07-09 07:50] LABS: Total Cells Counted 100
[2020-07-09] MEDS: TIMOLOL MALEATE/DORZOLAM HCL 100 DROP BTL EACHEYE SCH ×2 (08:11→20:39)
[2020-07-09] MEDS: BRIMONIDINE TARTRATE 50 DROP BTL EACHEYE SCH ×3 (08:14→16:54)
[2020-07-09 08:15] LABS: Albumin * 2.5 gm/dl (3.4-5.0); Anion Gap 14.6 mmol/L (6.8-13.8); BUN/Creatinine Ratio 20.4 (9.0-21.6); Calcium * 7.9 mg/dL (7.9-10.9); Carbon Dioxide 20.3 mmol/L (24-32.6); Potassium 3.9 mmol/L (3.4-4.6)
[2020-07-09 08:16] LABS: Bilirubin, Total 0.4 mg/dL (0.0-1.1); Ca. Corrected For Albumin 8.8 mg/dL (8.4-10.2)
[2020-07-09 08:26] LABS: CRP 17.5 mg/dL (0.0-0.9)
[2020-07-09 08:36] LABS: Band 2 % (0-2.0); Eosinophil 3 % (0-3); Lymphocyte 14 % (20-51); Monocyte 11 % (0-9); Neutrophil 70 % (42-75); Neutrophil # 3.9 K/mm3 (1.3-6.0); Platelet Estimate Normal (NORMAL)
[2020-07-09 08:38] LABS: Macrocytosis 1+
[2020-07-09] MEDS: CIPROFLOXACIN IN 5 % DEXTROSE 400 MG/200 ML BAG IV SCH ×2 (09:10→20:39)
[2020-07-09] MEDS: PANTOPRAZOLE SODIUM 40 MG in NORMAL SALINE 100 ML IV SCH (10:19)
--- NOTE | 2020-07-09 10:27 | PN ---
Subjective - Date and Time Seen Date: 07/09/20 Subjective Narrative: Patient reports some right lateral abdominal pain. She is able to drink juice. Is passing gas, but has not had a BM. She is belching more than normal. Is able to walk to the chair. At times, not this morning, her upper airway makes noises "like a goose." She's asking when she can go home. Objective - Review of Systems Generalized/Overall Review: Denies: Fever Respiratory: Denies: Shortness of Breath Cardiac: Denies: Edema Abdominal: Reports: Abdominal Pain. Denies: Nausea Genitourinary Symptoms: Reports: No Symptoms Reported - Vitals Vitals: Last Vital Signs Temp 36.7 C 07/09/20 10:23 Pulse 58 L 07/09/20 10:23 Resp 20 07/09/20 10:23 BP 130/63 07/09/20 10:23 Pulse Ox 96 07/09/20 10:23 - Abnormal Lab Findings Abnormal Lab Findings: Abnormal Lab Results 07/09/20 07/09/20 Range/Units 07:32 07:32 RBC 3.56 L (4.2-5.4) M/mm3 Hgb 11.1 L (12.5-16.0) gm/dL Hct 36.1 L (37.0-47.0) % MCV 101.4 H (78-100) fl MCH 31.2 H (27-31) pg MCHC 30.7 L (32-36) g/dl Plt Count 149 L (150-450) K/mm3 Lymphocytes % (Manual) 14 L (20-51) % Monocytes % (Manual) 11 H (0-9) % Lymphocytes # (Manual) 0.8 L (1.5-3.5) k/mm3 Carbon Dioxide 20.3 L (24-32.6) mmol/L Anion Gap 14.6 H (6.8-13.8) mmol/L Alkaline Phosphatase 40 L (50-170) U/L C-Reactive Prot, Quant 17.5 H (0.0-0.9) mg/dL Total Protein 5.0 L (6.2-8.2) gm/dL Albumin 2.5 L (3.4-5.0) gm/dl - Exam Constitutional: Present: Alert, Cooperative, No distress, Looks Younger than stated age Respiratory: Present: lungs clear, normal breath sounds, no respiratory distress Cardiovascular/Chest: Present: regular rate, rhythm Abdomen: Present: Normal bowel sounds, nontender, distended Extremity: Absent: lower extremity edema Eye contact: Present: cooperative, good eye contact Assessment/Plan Plan Narrative: Today is hospitalization day 5. She had taken a tramadol and collapsed, prompting her ED visit. She had also been passing blood in her stools. Workup found colitis and possible fecal impaction. Surgery was consulted, who performed a colonoscopy on 07/07, which found colitis and diverticulosis. She did not require surgery for the ischemic bowel. She is tolerating liquids and passing gas. She is able to ambulate to the bathroom. Labs are improving. CRP improved from 23.5 to 17.5. Hgb yesterday was 10.9 and was 11.1 today. Hypokalemia resolved. Will advance diet as tolerated. - Problems/Diagnosis (1) GI bleeding Problem: Acute Qualifiers: GI bleed type/associated pathology: unspecified gastrointestinal hemorrhage type Qualified Code(s): K92.2 - Gastrointestinal hemorrhage, unspecified (2) Ischemic colitis Problem: Acute (3) Enterocolitis Problem: Acute (4) Hypertension Problem: Chronic Qualifiers: Hypertension type: essential hypertension Qualified Code(s): I10 - Ess ential (primary) hypertension (5) CRF (chronic renal failure) Problem: Acute Qualifiers: Chronic kidney disease stage: stage 3 (moderate) Chronic kidney disease stage 3 subtype: stage 3b (GFR 30-44) Qualified Code(s): N18.32 - Chronic kidney disease, stage 3b (6) Medication reaction Problem: Suspected Qualifiers: Encounter type: initial encounter Qualified Code(s): T50.905A - Adverse effect of unspecified drugs, medicaments and biological substances, initial encounter (7) Hypokalemia Problem: Resolved Narrative: Resolved after IV administration of KCl yesterday.
[2020-07-09] MEDS: NORMAL SALINE 1,000 ML IV PRN (11:32)
[2020-07-09] MEDS: LISINOPRIL 10 MG TABLET PO SCH (20:40)
[2020-07-10] MEDS: NORMAL SALINE 1,000 ML IV PRN ×2 (00:09→15:02)
[2020-07-10] MEDS: metroNIDAZOLE/SODIUM CHLORIDE 500 MG/100 ML BAG IV SCH ×3 (02:00→16:32)
[2020-07-10] MEDS: ACETAMINOPHEN 325 MG TABLET PO PRN ×2 (06:42→21:25)
[2020-07-10] MEDS: LEVOTHYROXINE SODIUM 50 MCG TABLET PO SCH (06:42)
[2020-07-10 06:50] LABS: Hematocrit 34.7 % (37.0-47.0); Hemoglobin 10.9 gm/dL (12.5-16.0); Mean Cell Volume 99.1 fl (78-100); Mean Corpuscular Hemoglobin 31.1 pg (27-31); Mean Corpuscular Hgb Conc 31.4 g/dl (32-36); Mean Platelet Volume 10.2 fl (8-12.5); Neutrophil # 3.2 K/mm3 (1.3-6.0); Neutrophil % 64.3 % (42-75.0); Platelet Count 180 K/mm3 (150-450); Red Cell Distribution Width 12.9 % (11.5-14.0)
[2020-07-10 07:05] LABS: Albumin * 2.2 gm/dl (3.4-5.0); Anion Gap 14.4 mmol/L (6.8-13.8); BUN/Creatinine Ratio 7.8 (9.0-21.6); Bilirubin, Total 0.3 mg/dL (0.0-1.1); Ca. Corrected For Albumin 8.9 mg/dL (8.4-10.2); Calcium * 7.8 mg/dL (7.9-10.9); Carbon Dioxide 23.8 mmol/L (24-32.6); Potassium 3.2 mmol/L (3.4-4.6); Total Protein 5.1 gm/dL (6.2-8.2)
--- NOTE | 2020-07-10 08:02 | PN ---
Subjective - Date and Time Seen Date: 07/10/20 Subjective Narrative: She reports having right sided "hip" pain that's longstanding. Diet was advanced to full liquids yesterday, and she appears to be tolerating it. Has not yet had a BM, but is passing gas. Hasn't walked much due to her being attached to IVs. She does not normally use O2 at baseline, but is on 2L currently. She still has the upper airway wheeze, and feels like her voice sounds different. Denies sinus drainage. She does not know if she has abdominal distention at baseline. Objective - Review of Systems Generalized/Overall Review: Denies: Fever Respiratory: Denies: Shortness of Breath Cardiac: Denies: Edema Abdominal: Reports: Other - no BM. Denies: Bright blood from rectum Genitourinary Symptoms: Reports: No Symptoms Reported Musculoskeletal Complaints: Reports: Other - right hip pain - Vitals Vitals: Last Vital Signs Temp 36.7 C 07/10/20 04:51 Pulse 79 07/10/20 04:51 Resp 20 07/10/20 04:51 BP 148/82 07/10/20 04:51 Pulse Ox 97 07/10/20 04:51 - Abnormal Lab Findings Abnormal Lab Findings: Abnormal Lab Results 07/09/20 07/09/20 07/10/20 Range/Units 07:32 07:32 06:23 RBC 3.50 L (4.2-5.4) M/mm3 Hgb 10.9 L (12.5-16.0) gm/dL Hct 34.7 L (37.0-47.0) % MCH 31.1 H (27-31) pg MCHC 31.4 L (32-36) g/dl Immature Gran % (Auto) 0.80 H (0.001-0.429) % Immature Gran # (Auto) 0.04 H (0.000-0.0310) K/mm3 Lymphocytes % 18.0 L (20-51) % Lymphocytes % (Manual) 14 L (20-51) % Monocytes % 13.7 H (0.0-9) % Monocytes % (Manual) 11 H (0-9) % Lymphocytes # 0.89 L (1.5-3.5) k/mm3 Lymphocytes # (Manual) 0.8 L (1.5-3.5) k/mm3 Potassium (3.4-4.6) mmol/L Carbon Dioxide 20.3 L (24-32.6) mmol/L Anion Gap 14.6 H (6.8-13.8) mmol/L BUN/Creatinine Ratio (9.0-21.6) Calcium (7.9-10.9) mg/dL Alkaline Phosphatase 40 L (50-170) U/L C-Reactive Prot, Quant 17.5 H (0.0-0.9) mg/dL Total Protein 5.0 L (6.2-8.2) gm/dL Albumin 2.5 L (3.4-5.0) gm/dl 07/10/ Range/Units 06:23 RBC (4.2-5.4) M/mm3 Hgb (12.5-16.0) gm/dL Hct (37.0-47.0) % MCH (27-31) pg MCHC (32-36) g/dl Immature Gran % (Auto) (0.001-0.429) % Immature Gran # (Auto) (0.000-0.0310) K/mm3 Lymphocytes % (20-51) % Lymphocytes % (Manual) (20-51) % Monocytes % (0.0-9) % Monocytes % (Manual) (0-9) % Lymphocytes # (1.5-3.5) k/mm3 Lymphocytes # (Manual) (1.5-3.5) k/mm3 Potassium 3.2 L (3.4-4.6) mmol/L Carbon Dioxide 23.8 L (24-32.6) mmol/L Anion Gap 14.4 H (6.8-13.8) mmol/L BUN/Creatinine Ratio 7.8 L (9.0-21.6) Calcium 7.8 L (7.9-10.9) mg/dL Alkaline Phosphatase 40 L (50-170) U/L C-Reactive Prot, Quant (0.0-0.9) mg/dL Total Protein 5.1 L (6.2-8.2) gm/dL Albumin 2.2 L (3.4-5.0) gm/dl - Exam Constitutional: Present: Alert, Cooperative, No distress, Looks Younger than stated age Respiratory: Present: lungs clear, normal breath sounds, no respiratory distress Cardiovascular/Chest: Present: regular rate, rhythm Abdomen: Present: soft, nontender, distended Neurologic: Present: normal mood/affect Eye contact: Present: cooperative, good eye contact Assessment/Plan Plan Narrative: Today is hospitalization day 6. Workup found colitis and possible fecal impaction. Surgery was consulted, who performed a colonoscopy on 07/07, which found colitis and diverticulosis. She did not require surgery for the ischemic bowel. She is tolerating liquids and passing gas. Diet advanced yesterday from clear liquids to full liquids. Continue cipro and flagyl. Her potassium is again low at 3.2, so 20 mEq KDur added. Hgb staying stable. She does not use oxygen at home, and her sats have been in the mid-upper 90's, so ok to try weaning off oxygen. If she tolerates a diet and has a BM, DC could happen as soon as tomorrow. - Problems/Diagnosis (1) GI bleeding Problem: Acute Qualifiers: GI bleed type/associated pathology: unspecified gastrointestinal hemorrhage type Qualified Code(s): K92.2 - Gastrointestinal hemorrhage, unspecified (2) Hypokalemia Problem: Acute Narrative: Her potassium again is now decreased to 3.2. 20 mEq KDur bid added, and will recheck in the morning. (3) Ischemic colitis Problem: Acute (4) Enterocolitis Problem: Acute (5) Hypertension Problem: Chronic Qualifiers: Hypertension type: essential hypertension Qualified Code(s): I10 - Essential (primary) hypertension (6) CRF (chronic renal failure) Problem: Acute Qualifiers: Chronic kidney disease stage: stage 3 (moderate) Chronic kidney disease stage 3 subtype: stage 3b (GFR 30-44) Qualified Code(s): N18.32 - Chronic kidney disease, stage 3b (7) Medication reaction Problem: Suspected Qualifiers: Encounter type: initial encounter Qualified Code(s): T50.905A - Adverse effect of unspecified drugs, medicaments and biological substances, initial encounter
[2020-07-10] MEDS: CIPROFLOXACIN IN 5 % DEXTROSE 400 MG/200 ML BAG IV SCH ×2 (09:31→21:28)
[2020-07-10] MEDS: POTASSIUM CHLORIDE 20 MEQ TABLET.SA PO SCH ×2 (09:34→16:38)
[2020-07-10] MEDS: TIMOLOL MALEATE/DORZOLAM HCL 100 DROP BTL EACHEYE SCH ×2 (09:35→21:27)
[2020-07-10] MEDS: BRIMONIDINE TARTRATE 50 DROP BTL EACHEYE SCH ×3 (09:36→16:32)
[2020-07-10] MEDS: PANTOPRAZOLE SODIUM 40 MG in NORMAL SALINE 100 ML IV SCH (12:30)
[2020-07-10] MEDS: LISINOPRIL 10 MG TABLET PO SCH (21:25)
[2020-07-11] MEDS: metroNIDAZOLE/SODIUM CHLORIDE 500 MG/100 ML BAG IV SCH ×3 (00:26→16:37)
[2020-07-11] MEDS: NORMAL SALINE 1,000 ML IV PRN ×2 (05:26→22:49)
[2020-07-11 06:26] LABS: Hemoglobin 11.7 gm/dL (12.5-16.0); Mean Corpuscular Hemoglobin 30.5 pg (27-31); Mean Corpuscular Hgb Conc 30.8 g/dl (32-36); Mean Platelet Volume 9.6 fl (8-12.5); Neutrophil # 2.8 K/mm3 (1.3-6.0); Platelet Count 207 K/mm3 (150-450); Red Blood Count 3.84 M/mm3 (4.2-5.4); Red Cell Distribution Width 12.9 % (11.5-14.0); White Blood Count 5.3 K/mm3 (4.0-10.5)
[2020-07-11 06:41] LABS: Albumin * 2.3 gm/dl (3.4-5.0); Anion Gap 11.1 mmol/L (6.8-13.8); BUN/Creatinine Ratio 4.8 (9.0-21.6); Bilirubin, Total 0.3 mg/dL (0.0-1.1); Carbon Dioxide 27.7 mmol/L (24-32.6); Potassium 3.8 mmol/L (3.4-4.6); Total Protein 5.4 gm/dL (6.2-8.2)
[2020-07-11] MEDS: LEVOTHYROXINE SODIUM 50 MCG TABLET PO SCH (06:57)
[2020-07-11] MEDS: TIMOLOL MALEATE/DORZOLAM HCL 100 DROP BTL EACHEYE SCH ×2 (08:22→20:28)
[2020-07-11] MEDS: BRIMONIDINE TARTRATE 50 DROP BTL EACHEYE SCH ×3 (08:22→16:37)
[2020-07-11] MEDS: POTASSIUM CHLORIDE 20 MEQ TABLET.SA PO SCH ×2 (08:23→16:37)
[2020-07-11] MEDS: CIPROFLOXACIN IN 5 % DEXTROSE 400 MG/200 ML BAG IV SCH ×2 (08:23→20:27)
--- NOTE | 2020-07-11 08:27 | PN ---
Subjective - Date and Time Seen Date: 07/11/20 Time: 08:16 Subjective Narrative: Patient feeling better. Toelrated full liquids. Had right sided upper abdominal pain which repsonded to Tylenol yesterday.afebrile. Objective - Review of Systems Generalized/Overall Review: Reports: Weakness. Denies: Chills, Fever EENTM: Denies: Blurred Vision Respiratory: Denies: Cough, Shortness of Breath, Orthopnea Cardiac: Denies: Chest Pain, Edema, Palpitations Abdominal: Reports: Abdominal Pain, Other - had small loose stools, yellowish- brownish. Denies: Nausea, Vomiting, Melena, Bright blood from rectum Genitourinary Symptoms: Denies: Urgency, Frequency Musculoskeletal Complaints: Reports: Back Pain Neurological: Denies: Headache Skin: Denies: Lesions, Rash Misc: All systems neg except as marked - Vitals Vitals: Last Vital Signs Temp 36.3 C 07/11/20 06:51 Pulse 70 07/11/20 06:51 Resp 16 07/11/20 06:51 BP 156/89 H 07/11/20 06:51 Pulse Ox 98 07/11/20 06:51 - Abnormal Lab Findings Abnormal Lab Findings: Abnormal Lab Results 07/11/20 07/11/20 Range/Units 06:24 06:30 RBC 3.84 L (4.2-5.4) M/mm3 Hgb 11.7 L (12.5-16.0) gm/dL MCHC 30.8 L (32-36) g/dl Immature Gran % (Auto) 1.10 H (0.001-0.429) % Immature Gran # (Auto) 0.06 H (0.000-0.0310) K/mm3 Monocytes % 17.1 H (0.0-9) % Lymphocytes # 1.30 L (1.5-3.5) k/mm3 BUN/Creatinine Ratio 4.8 L (9.0-21.6) Alkaline Phosphatase 41 L (50-170) U/L Total Protein 5.4 L (6.2-8.2) gm/dL Albumin 2.3 L (3.4-5.0) gm/dl - Exam Constitutional: Present: Alert, Oriented x3, Cooperative, Overweight ENT Exam: Present: hearing grossly normal Neck: Present: supple. Absent: lymphadenopathy (R), lymphadenopathy (L) Respiratory: Present: normal breath sounds, No rales, No wheezing Cardiovascular/Chest: Present: regular rate, rhythm, no JVD, no murmur Abdomen: Present: Normal bowel sounds, soft, nontender, no rebound tenderness, other - hyperacyive BS Extremity: Present: no calf tenderness. Absent: lower extremity edema Assessment/Plan Plan Narrative: Marylu was admitted for nausea vomiting abdominal pain after taking tramadol. Admitting impression was enterocolitis, inflammatory versus infectious. She also had gallbladder distention likely due to to transient biliary spasm medicine induced. She had lower GI bleed and colonoscopy done showed likely ischemic colitis. We continued her on clear liquids, IV fluids, IV antibiotics. She clinically improved and tolerated full liquids yesterday. We will progress her today to soft diet and refer her to physical therapy for evaluation. This is day 7 of IV antibiotics. Possible discharge tomorrow if soft diet is tolerated. - Problems/Diagnosis (1) GI bleeding Problem: Acute Qualifiers: GI bleed type/associated pathology: unspecified gastrointestinal hemorrhage type Qualified Code(s): K92.2 - Gastrointestinal hemorrhage, unspecified (2) Enterocolitis Problem: Acute (3) Medication reaction Problem: Suspected Qualifiers: Encounter type: initial encounter Qualified Code(s): T50.905A - Adverse effect of unspecified drugs, medicaments and biological substances, initial encounter (4) Hypertension Problem: Chronic Qualifiers: Hypertension type: essential hypertension Qualified Code(s): I10 - Essential (primary) hypertension (5) Hypothyroidism Problem: Chronic Qualifiers: Hypothyroidism type: acquired Qualified Code(s): E03.9 - Hypothyroidism, unspecified (6) CRF (chronic renal failure) Problem: Acute Qualifiers: Chronic kidney disease stage 3 subtype: stage 3b (GFR 30-44) Narrative: improved to Stage 1 (7) Constipation Problem: Resolved (8) Bladder distension Problem: Acute Narrative: Gall Bladder distension (9) Malnutrition Problem: Acute Qualifiers: Malnutrition type: protein-calorie malnutrition Protein-calorie malnutrition severity: unspecified severity Qualified Code(s): E46 - Unspecified protein-calorie malnutrition
[2020-07-11] MEDS: PANTOPRAZOLE SODIUM 40 MG in NORMAL SALINE 100 ML IV SCH (11:03)
[2020-07-11] MEDS: ACETAMINOPHEN 325 MG TABLET PO PRN (14:04)
[2020-07-11] MEDS ORDERED: LISINOPRIL 20 MG TABLET PO SCH (21:00)
[2020-07-12] MEDS: metroNIDAZOLE/SODIUM CHLORIDE 500 MG/100 ML BAG IV SCH ×2 (01:26→08:29)
[2020-07-12] MEDS: ACETAMINOPHEN 325 MG TABLET PO PRN ×2 (01:31→13:33)
[2020-07-12] MEDS ORDERED: diphenhydrAMINE HCL 25 MG CAPSULE PO PRN (02:25)
[2020-07-12] MEDS: LEVOTHYROXINE SODIUM 50 MCG TABLET PO SCH (07:06)
[2020-07-12 07:26] LABS: Hematocrit 36.2 % (37.0-47.0); Hemoglobin 11.6 gm/dL (12.5-16.0); Mean Cell Volume 96.3 fl (78-100); Mean Corpuscular Hemoglobin 30.9 pg (27-31); Mean Platelet Volume 9.7 fl (8-12.5); Neutrophil # 2.9 K/mm3 (1.3-6.0); Neutrophil % 53.9 % (42-75.0); Platelet Count 226 K/mm3 (150-450); Red Blood Count 3.76 M/mm3 (4.2-5.4); Red Cell Distribution Width 12.8 % (11.5-14.0); White Blood Count 5.3 K/mm3 (4.0-10.5)
[2020-07-12 07:42] LABS: Anion Gap 10.5 mmol/L (6.8-13.8); Calcium * 8.2 mg/dL (7.9-10.9); Carbon Dioxide 26.8 mmol/L (24-32.6); Potassium 3.3 mmol/L (3.4-4.6)
[2020-07-12] MEDS ORDERED: POTASSIUM CHLORIDE 10 MEQ TABLET.SA PO ONE (08:07)
[2020-07-12] MEDS: TIMOLOL MALEATE/DORZOLAM HCL 100 DROP BTL EACHEYE SCH (08:27)
[2020-07-12] MEDS: BRIMONIDINE TARTRATE 50 DROP BTL EACHEYE SCH ×2 (08:32→12:54)
--- NOTE | 2020-07-12 08:33 | PN ---
Progess Note - Interim Date: 07/12/20 Time: 08:29 Narrative: 07/12/20 08:29 Patient had a rash on her back last night. Benadryl given. BP elevated. HCTZ restarted. we had decreased her IVF to 30 ml/hr yesterday.Tolerated soft diet well. had 4 small BM , not bloody. will start low salt regular diet today. if tolerated will discharge her today.
[2020-07-12] MEDS ORDERED: HYDROCHLOROTHIAZIDE 25 MG TABLET PO SCH (09:00)
--- NOTE | 2020-07-12 09:22 | DS ---
(1) GI bleeding Diagnosis(s): due to ischemic colitis Problem: Resolved Qualifiers: GI bleed type/associated pathology: unspecified gastrointestinal hemorrhage type Qualified Code(s): K92.2 - Gastrointestinal hemorrhage, unspecified (2) Ischemic colitis Diagnosis(s): acute colonic ischemia Problem: Resolved (3) Medication reaction Diagnosis(s): GB distension likely secondary to biliary spasm from Tramadol. Problem: Suspected Qualifiers: Encounter type: initial encounter Qualified Code(s): T50.905A - Adverse effect of unspecified drugs, medicaments and biological substances, initial encounter (4) Hypertension Problem: Chronic Qualifiers: Hypertension type: essential hypertension Qualified Code(s): I10 - Essential (primary) hypertension (5) Hypothyroidism Problem: Chronic Qualifiers: Hypothyroidism type: acquired Qualified Code(s): E03.9 - Hypothyroidism, u nspecified (6) Constipation Problem: Resolved Qualifiers: Constipation type: slow transit constipation Qualified Code(s): K59.01 - Slow transit constipation (7) Bladder distension Diagnosis(s): Gall Bladder distension w/o cholecystitis/cholelithiasis Problem: Acute (8) Malnutrition Problem: Acute Qualifiers: Malnutrition type: protein-calorie malnutrition Protein-calorie malnutrition severity: unspecified severity Qualified Code(s): E46 - Unspecified protein-calorie malnutrition (9) ELIZABETH (acute kidney injury) Diagnosis(s): likely prerenal Problem: Resolved Date of Discharge:: 07/12/20 Hospital Course: Marylu Murry is an 89 yr old white female with past medical history significant for hypertension, hypothyroidism, hyperlipidemia and low back pain who was admitted on 07/06/2020 for nausea and vomiting after taking tramadol. Marylu has been having constipation for the past several days. On Saturday she had back pain that also involve her right abdominal area. She was given oxycodone by her daughter on Saturday. She had another dose on Saturday. She saw orthopedics at [facility] who ordered for an MRI for her back and she was sent home with tramadol. She took one of them and she had abdominal pain severe and she went to be bathroom but could not have any bowel movement. She took stool laxatives and went back to her bed but the pain was worse associated with nausea and vomiting x3. She laid down on the floor with her pillow and called her daughter. She was then brought to our emergency room . She said she did not pass out at all. She denied fever or chills, dark or bright red blood stools. Her CBC and CMP were essentially within normal limits except for Cr/GFR.. Her CT scan of the abdomen though showed- IMPRESSION: TECHNICALLY LIMITED STUDY ON ACCOUNT OF NONCONTRAST TECHNIQUE AND CONSIDERABLE STREAK ARTIFACT FROM BILATERAL HIP PROSTHETIC HARDWARE. SUSPECTED INFECTIOUS OR INFLAMMATORY ENTEROCOLITIS, MOST PRONOUNCED IN THE TRANSVERSE COLON. MODERATE RETENTION OF FLUID AND STOOL IN THE SMALL AND LARGE BOWEL, POSSIBLY REFLECTING MILD ASSOCIATED ADYNAMIC ILEUS. NO APPRECIABLE EVIDENCE OF MECHANICAL OBSTRUCTION, PNEUMATOSIS OR FREE AIR. QUESTIONABLE STOOL BURDEN IN THE RECTAL VAULT RAISING QUESTION OF FECAL IMPACTION ALTHOUGH THIS IS LIKELY. MODERATELY DISTENDED GALLBLADDER WITH NO GALLSTONES. THE STUDY CONCURS WITH THE PRELIMINARY REPORT FROM [facility] AT 0253 HOURS ON JUNE 26, 2020. She started passing liquid stools in the emergency room. Her ultrasound of her gallbladder done while she was on the floor showed- IMPRESSION: 1. Distended gallbladder without cholelithiasis. No evidence of acute cholecystitis on this exam. Normal caliber bile ducts given patient's age. 2. Trace fluid adjacent to the liver. If there is persistent concern for acute cholecystitis or gallbladder dysfunction, a nuclear medicine hepatobiliary scan could be performed to further evaluate. Marylu was then admitted for nausea vomiting abdominal pain after taking tramadol. Admitting impression was enterocolitis, inflammatory versus infectious based on her CTS. She also had gallbladder distention without cholecystitis or cholelithiasis likely due to to transient biliary spasm medicine induced. LFT were WNL. While in the floor she passed out large liquid stool, maroonish in color- positive for occult blood. She had lower GI bleed and colonoscopy with biopsy was done - likely ischemic colitis. Since her clinical picture looked more like acute colonic ischemia, nonocclusive rather than acute mesenteric ischemia , CTA was not done to look for mesenteric thrombosis or embolism. We continued her on clear liquids, IV fluids, IV antibiotics. She had 6 to 7 days of IV Cipro and Flagyl and her white blood cell count as well as her LDH, LA, CK, were all within normal. She clinically improved and tolerated gradual progression of her diet. Her pathology showed ischemic changes with ac companying necroinflammatory debris. She wants care. She is homebound due to her multiple medical problems and generalized weakness. The need for senior care is for monitoring of vital signs and abdominal findings, managing medications. The need for physical therapy is for strengthening exercises due to deconditioning. . Procedures Performed: see notes below List Procedures: colonoscopy Results and Findings: Lab Pending Results 07/05/20 23:43: WBC 9.6, RBC 4.48, Hgb 14.0, Hct 43.0, MCV 96.0, MCH 31.3 H, MCHC 32.6, RDW 12.2, Plt Count 209, MPV 10.6, Immature Gran % (Auto) 0.60 H, Immature Gran # (Auto) 0.06 H, Neutrophils % 74.4, Lymphocytes % 19.4 L, Monocytes % 4.1, Eosinophils % 1.2, Basophils % 0.3, Nucleated RBC % 0.0, Neutrophils # 7.1 H, Lymphocytes # 1.85, Monocytes # 0.4, Eosinophils # 0.1, Absolute Basophils 0.0 07/05/20 23:43: Sodium 133, Plasma Sodium 134, Potassium 3.9, Chloride 94 L, Carbon Dioxide 27.2, Anion Gap 15.7 H, BUN 29 H, Creatinine 1.48 H, Est GFR (Non-Af Amer) 35 L, BUN/Creatinine Ratio 19.6, Random Glucose 172 H, Calcium 9.9, Calcium Adj for Albumin 9.8, Total Bilirubin 0.7, AST 42, ALT 33, Alkaline Phosphatase 60, Total Protein 7.3, Albumin 3.7 07/05/20 23:46: B-Natriuretic Peptide 816 H 07/06/20 01:37: SARS-CoV-2 (PCR) Not detected 07/06/20 08:55: ESR 5 07/06/20 08:55: C-Reactive Prot, Quant 2.8 H 07/06/20 08:55: ANCA Screen Negative, c-ANCA Titer Dnr, p-ANCA Titer Dnr, Atypical p-ANCA Titer Dnr 07/06/20 09:39: Stool Occult Blood Positive H 07/06/20 11:33: Stl C.difficile Tox A&B Negative 07/07/20 07:02: WBC 9.1, RBC 4.08 L, Hgb 12.8, Hct 39.9, MCV 97.8, MCH 31.4 H, MCHC 32.1, RDW 12.9, Plt Count 168, MPV 10.7, Immature Gran % (Auto) 0.30, Immature Gran # (Auto) 0.03, Neutrophils % 84.0 H, Lymphocytes % 10.1 L, Monocytes % 5.2, Eosinophils % 0.1, Basophils % 0.3, Nucleated RBC % 0.0, Ne utrophils # 7.7 H, Lymphocytes # 0.92 L, Monocytes # 0.5, Eosinophils # 0.0, Absolute Basophils 0.0 07/07/20 07:02: Sodium 135, Plasma Sodium 135, Potassium 4.0, Chloride 102, Carbon Dioxide 25.6, Anion Gap 11.4, BUN 29 H, Creatinine 1.13, Est GFR (Non-Af Amer) 48 L D, BUN/Creatinine Ratio 25.7 H, Random Glucose 106 D, Calcium 7.8 L, Calcium Adj for Albumin 8.5, Total Bilirubin 0.4, AST 25, ALT 34, Alkaline Phosphatase 42 L, Total Protein 5.7 L, Albumin 2.7 L 07/07/20 17:22: Pathology Specimen Spec to path 07/08/20 03:13: Urine Color Shae, Urine Appearance Clear, Urine pH 5.5, Ur Specific Butler >=1.030, Urine Protein 30 H, Urine Glucose (UA) Negative, Urine Ketones 15, Urine Blood 5 H, Urine Nitrate Positive H, Urine Bilirubin Negative, Urine Urobilinogen Normal, Ur Leukocyte Esterase Negative, Urine RBC 0-5, Urine WBC 0-5, Ur Epithelial Cells 5-10 H, Urine Bacteria Trace, Urine Comment TNP 07/08/20 06:30: WBC 6.3 D, RBC 3.48 L, Hgb 10.9 L, Hct 33.6 L, MCV 96.6, MCH 31.3 H, MCHC 32.4, RDW 12.9, Plt Count 153, MPV 10.6, Immature Gran % (Auto) 0.20, Immature Gran # (Auto) 0.01, Neutrophils % 80.8 H, Lymphocytes % 9.8 L, Monocytes % 8.6, Eosinophils % 0.3, Basophils % 0.3, Nucleated RBC % 0.0, Neutrophils # 5.1, Lymphocytes # 0.62 L, Monocytes # 0.5, Eosinophils # 0.0, Absolute Basophils 0.0 07/08/20 06:30: ESR 38 H 05/21/21 06:30: Sodium 137, Plasma Sodium 137, Potassium 2.9 L D, Chloride 102, Carbon Dioxide 24.1, Anion Gap 13.8, BUN 17, Creatinine 0.74, Est GFR (Non-Af Amer) 79 D, BUN/Creatinine Ratio 23.0 H, Random Glucose 95, Calcium 7.9, Lactate Dehydrogenase 137, Creatine Kinase 57, C-Reactive Prot, Quant 23.5 H 07/08/20 06:38: PT 10.9 H, INR (Anticoag Therapy) 1.05 07/08/20 06:40: Lactic Acid, Venous 0.9 07/09/20 07:32: WBC 5.6, RBC 3.56 L, Hgb 11.1 L, Hct 36.1 L, MCV 101.4 H, MCH 31.2 H, MCHC 30.7 L, RDW 12.9, Plt Count 149 L, MPV 10.6, Neutrophils % (Manual) 70, Band Neuts % (Manual) 2, Lymphocytes % (Manual) 14 L, Monocytes % (Manual) 11 H, Eosinophils % (Manual) 3, Neutrophils # (Manual) 3.9, Lymphocytes # (Manual) 0.8 L, Monocytes # (Manual) 0.6, Eosinophils # (Manual) 0.2, Platelet Estimate Normal, Macrocytosis 1+ 07/09/20 07:32: Sodium 133, Plasma Sodium 133, Potassium 3.9 D, Chloride 102, Carbon Dioxide 20.3 L, Anion Gap 14.6 H, BUN 11, Creatinine 0.54, Est GFR (Non- Af Amer) 114 D, BUN/Creatinine Ratio 20.4, Random Glucose 97, Calcium 7.9, Calcium Adj for Albumin 8.8, Total Bilirubin 0.4, AST 21, ALT 25, Alkaline Phosphatase 40 L, C-Reactive Prot, Quant 17.5 H, Total Protein 5.0 L, Albumin 2.5 L 07/10/20 06:23: WBC 5.0, RBC 3.50 L, Hgb 10.9 L, Hct 34.7 L, MCV 99.1, MCH 31.1 H, MCHC 31.4 L, RDW 12.9, Plt Count 180, MPV 10.2, Immature Gran % (Auto) 0.80 H, Immature Gran # (Auto) 0.04 H, Neutrophils % 64.3, Lymphocytes % 18.0 L, Monocytes % 13.7 H, Eosinophils % 2.8, Basophils % 0.4, Nucleated RBC % 0.0, Neutrophils # 3.2, Lymphocytes # 0.89 L, Monocytes # 0.7, Eosinophils # 0.1, Absolute Basophils 0.0 07/10/20 06:23: Sodium 139, Plasma Sodium 139, Potassium 3.2 L, Chloride 104, Carbon Dioxide 23.8 L, Anion Gap 14.4 H, BUN 5 D, Creatinine 0.64, Est GFR (Non-Af Amer) 93, BUN/Creatinine Ratio 7.8 L, Random Glucose 97, Calcium 7.8 L, Calcium Adj for Albumin 8.9, Total Bilirubin 0.3, AST 18, ALT 20, Alkaline Phosphatase 40 L, Total Protein 5.1 L, Albumin 2.2 L 07/11/20 06:24: WBC 5.3, RBC 3.84 L, Hgb 11.7 L, Hct 38.0, MCV 99.0, MCH 30.5, MCHC 30.8 L, RDW 12.9, Plt Count 207, MPV 9.6, Immature Gran % (Auto) 1.10 H, Immature Gran # (Auto) 0.06 H, Neutrophils % 54.0, Lymphocytes % 24.7, Monocytes % 17.1 H, Eosinophils % 2.5, Basophils % 0.6, Nucleated RBC % 0.0, Neutrophils # 2.8, Lymphocytes # 1.30 L, Monocytes # 0.9, Eosinophils # 0.1, Absolute Basophils 0.0 07/11/20 06:30: Sodium 140, Plasma Sodium 140, Potassium 3.8, Chloride 105, Carbon Dioxide 27.7, Anion Gap 11.1, BUN 3, Creatinine 0.62, Est GFR (Non-Af Amer) 97, BUN/Creatinine Ratio 4.8 L, Random Glucose 107, Calcium 8.0, Calcium Adj for Albumin 9.0, Total Bilirubin 0.3, AST 23, ALT 21, Alkaline Phosphatase 41 L, Total Protein 5.4 L, Albumin 2.3 L 07/12/20 07:05: WBC 5.3, RBC 3.76 L, Hgb 11.6 L, Hct 36.2 L, MCV 96.3, MCH 30.9, MCHC 32.0, RDW 12.8, Plt Count 226, MPV 9.7, Immature Gran % (Auto) 1.30 H, Immature Gran # (Auto) 0.07 H, Neutrophils % 53.9, Lymphocytes % 23.6, Monocytes % 18.5 H, Eosinophils % 2.1, Basophils % 0.6, Nucleated RBC % 0.0, Neutrophils # 2.9, Lymphocytes # 1.26 L, Monocytes # 1.0, Eosinophils # 0.1, Absolute Basophils 0.0 07/12/20 07:05: Sodium 138, Plasma Sodium 138, Potassium 3.3 L, Chloride 104, Carbon Dioxide 26.8, Anion Gap 10.5, BUN 4, Creatinine 0.57, Est GFR (Non-Af Amer) 107, BUN/Creatinine Ratio 7.0 L, Random Glucose 108, Calcium 8.2 Discharge Location: Home Disposition: Home Health Service Home Health Agency: [facility] Condition: Stable Discharge Activity: Activity as tolerated Discharge Diet: Low salt Referrals: Dioni Smith MD [Primary Care Provider] - Additional Patient Instructions (free text): Follow-up with her PCP Dr. Smith in 1 week. Reschedule her MRI of her back. [facility] to follow at home new.Please call report and fax orders upon discharge. Prescriptions (Any new or edited meds): Potassium Chloride [K-Dur] 20 meq PO DAILY #30 tablet.sa Transmission Status: Received by [facility] Acetaminophen [Tylenol] 650 mg PO Q6H PRN #30 tab PRN Reason: Pain/Fever Transmission Status: Received by [facility] Lisinopril [Zestril] 20 mg PO HS #60 Complete Home Medications List: Complete Home Medication List: Aspirin [Aspirin EC] 81 mg PO DAILY 07/06/20 B Complx/C/Folic/Zinc/Cup Bartholomew/E [Zpredbwregwx-Pnlq-Sazcji Tab] 1 ea PO DAILY 07/06/20 Brimonidine Tartrate [Alphagan-P 0.1% Ophthalmic Solution] 1 drop EACHEYE TID 07/06/20 Cranberry 500 mg PO TID 07/06/20 Dorzolamide HCl/Timolol Maleat [Dorzolamide-Timolol Eye Drops] 1 drp EACHEYE BID 07/06/20 Garlic 500 mg PO DAILY 07/06/20 Hydrochlorothiazide [Hydrodiuril] 25 mg PO DAILY 07/06/20 Latanoprostene Bunod [Vyzulta] 1 drp EACHEYE HS 07/06/20 Levothyroxine Sodium [Synthroid] 50 mcg PO DAILY 07/06/20 [place]-3 Fatty Acids/Fish Oil [Fish Oil 1,000 mg Capsule] 1 ea PO DAILY 07/06/20 Vitamin D3 2,000 units PO DAILY 07/06/20 Acetaminophen [Tylenol] 650 mg PO Q6H PRN #30 tab 07/12/20 Lisinopril [Zestril] 20 mg PO HS #60 07/12/20 Potassium Chloride [K-Dur] 20 meq PO DAILY #30 tablet.sa 07/12/20 Forms: Patient Portal Registration
[2020-07-12] MEDS: POTASSIUM CHLORIDE 20 MEQ TABLET.SA PO SCH (09:36)
[2020-07-12] MEDS: CIPROFLOXACIN IN 5 % DEXTROSE 400 MG/200 ML BAG IV SCH (09:37)
[2020-07-12] MEDS: PANTOPRAZOLE SODIUM 40 MG in NORMAL SALINE 100 ML IV SCH (10:57)
[2020-07-12 16:16] VITALS: BP 160/84
== END 2020-07-12 17:00 | disposition home health service (06) | DRG 394 ==
LOC: ER 23:29 → MS 23:29
PROVIDERS: ADMIT Internal Medicine; ATTEND Internal Medicine
DX: E87.6 Hypokalemia; N17.9 Acute kidney failure, unspecified; N18.30 Chronic kidney disease, stage 3 unspecified; E46 Unspecified protein-calorie malnutrition; K63.5 Polyp of colon; Z85.3 Personal history of malignant neoplasm of breast; E03.9 Hypothyroidism, unspecified; M41.9 Scoliosis, unspecified; I12.9 Hypertensive chronic kidney disease with stage 1 through stage 4 chronic kidney disease, or unspecified chronic kidney disease; K55.039 Acute (reversible) ischemia of large intestine, extent unspecified; E78.5 Hyperlipidemia, unspecified; K59.00 Constipation, unspecified; T40.425A Adverse effect of tramadol, initial encounter; K57.30 Diverticulosis of large intestine without perforation or abscess without bleeding; R21 Rash and other nonspecific skin eruption; Z68.26 Body mass index [BMI] 26.0-26.9, adult; K82.8 Other specified diseases of gallbladder; M54.5 Low back pain